=== PATIENT | male | born 1980 | race Two or more races ===

== ENCOUNTER 2021-04-15 05:54 | Emergency (ER) | payer BC ==
[~2021-04-15] VITALS: Ht 165.1 cm; Wt 90.7 kg
[2021-04-15 07:23] VITALS: BP 164/113
[2021-04-15] MEDS ORDERED: CLINDAMYCIN 900MG IV 50 ML IV ONE (07:45)
[2021-04-15] MEDS ORDERED: KETOROLAC TROMETH 30 MG/ML 1ML VIAL IV ONE (07:45)
[2021-04-15] MEDS ORDERED: cloNIDine HCL 0.1 MG TAB PO ONE (08:00)
[2021-04-15] MEDS ORDERED: ONDANSETRON ODT 4 MG TAB PO ONE (08:15)
[2021-04-15] MEDS ORDERED: ACETAMINOPHEN/CODEINE#3 (300/30mg) TAB PO ONE (08:15)
[2021-04-15 08:30] LABS: Basophils # (auto) 0.1 10 ^3/uL (0-0.2); Basophils % (auto) 0.6 % (0.0-2.0); Eosinophils # (auto) 0.1 10 ^3/uL (0-0.8); Eosinophils % (auto) 0.6 % (0.0-7.0); Hematocrit 47.5 % (41.0-53.0); Hemoglobin 16.1 g/dL (13.5-17.5); Lymphocytes # (auto) 1.8 10 ^3/uL (0.4-5.4); Lymphocytes % (auto) 14.6 % (10.0-50.0); Mean Corpuscular Hemoglobin 31.3 pg (28.0-32.0); Mean Corpuscular Hgb Conc. 33.9 g/dL (32.0-36.0); Mean Corpuscular Volume 92.3 fL (80.0-100.0); Monocytes # (auto) 1.1 10 ^3/uL (0-1.3); Monocytes % (auto) 9.1 % (0.0-12.0); Neutrophils % (auto) 75.1 % (37.0-80.0); Nucleated Red Blood Cells % 0.1 %; Red Blood Cells 5.15 10^6/uL (4.5-5.90); Red Cell Distribution Width 13.2 % (11.8-14.3)
== END 2021-04-15 09:35 | disposition home or self-care (01) ==
LOC: ER 05:54
DX: K08.89 Other specified disorders of teeth and supporting structures (principal); R51.9 Headache, unspecified; R03.0 Elevated blood-pressure reading, without diagnosis of hypertension; R07.89 Other chest pain; F12.10 Cannabis abuse, uncomplicated; Z88.0 Allergy status to penicillin; Z88.1 Allergy status to other antibiotic agents
CPT/HCPCS: 36415; 70486; 70490; 85025; 93005; 96365; 99285; J3490; Q0162

== ENCOUNTER 2022-07-04 06:58 | Emergency (ER) | payer BC ==
[~2022-07-04] VITALS: Ht 165.1 cm; Wt 97.0 kg
[2022-07-04 08:19] VITALS: BP 151/105
[2022-07-04] MEDS ORDERED: ALBUTEROL SULF 2.5 MG/0.5ML(0.5%) NEB SOLN NEB ONE ×2 (08:30→08:45)
[2022-07-04] MEDS ORDERED: IPRATROPIUM BROM 0.5 MG/2.5ML INH SOL NEB ONE (08:30)
[2022-07-04] MEDS ORDERED: cefTRIAXone SOD 1,000 MG VL IM ONE (08:30)
[2022-07-04] MEDS ORDERED: AZIT500T66 PO (09:07)
[2022-07-04] MEDS ORDERED: ALBU108A5 IN (09:07)
[2022-07-04] MEDS ORDERED: PRED20TA2 PO (09:07)
== END 2022-07-04 09:14 | disposition home or self-care (01) ==
LOC: ER 06:58
DX: J20.9 Acute bronchitis, unspecified (principal); J03.90 Acute tonsillitis, unspecified; F12.90 Cannabis use, unspecified, uncomplicated; Z90.49 Acquired absence of other specified parts of digestive tract
CPT/HCPCS: 71046; 94640; 96372; 99283; J0696; J7644

== ENCOUNTER 2022-08-13 15:56 | Emergency (ER) | payer BC ==
[~2022-08-13] VITALS: Ht 165.1 cm; Wt 98.8 kg
[~2022-08-13 15:56] MED LIST: ALBU108A5 IN; AZIT500T66 PO; PRED20TA2 PO
[2022-08-13] MEDS ORDERED: MAALOX PLUS or MAALOX 30 ML PO ONE (17:30)
[2022-08-13] MEDS ORDERED: ONDANSETRON ODT 4 MG TAB PO ONE (17:30)
[2022-08-13] MEDS ORDERED: FAMOTIDINE 20 MG TAB PO ONE (17:30)
[2022-08-13] MEDS ORDERED: LIDOCAINE VISCOUS 2% 15ML UD PO ONE (17:30)
[2022-08-13 17:36] LABS: Urine Bacteria NONE SEEN /hpf (None Seen); Urine Blood 1+ /uL (Negative); Urine Hyaline Cast FEW /lpf (0 - 2); Urine Mucus FEW (None Seen); Urine Specific Gravity 1.019 (1.001-1.035); Urine WBC 3 /hpf (0 - 3)
[2022-08-13 18:27] LABS: Albumin 3.8 g/dL (3.4-5.0); Calcium 8.7 mg/dL (8.5-10.1); Potassium 3.6 mmol/L (3.5-5.1)
[2022-08-13 18:30] LABS: BUN/Creatinine Ratio 7.4
[2022-08-13 18:33] LABS: Bilirubin, Total 1.2 mg/dL (0.2-1.0); Total Protein 7.6 g/dL (6.4-8.2)
[2022-08-13 18:53] LABS: Basophils # (auto) 0.1 10 ^3/uL (0-0.2); Eosinophils # (auto) 0.1 10 ^3/uL (0-0.8); Eosinophils % (auto) 1.4 % (0.0-7.0); Mean Corpuscular Hgb Conc. 35.4 g/dL (32.0-36.0)
[2022-08-13 19:01] LABS: Basophils % (auto) 0.6 % (0.0-2.0); Hematocrit 47.9 % (41.0-53.0); Lymphocytes # (auto) 1.5 10 ^3/uL (0.4-5.4); Mean Corpuscular Hemoglobin 32.4 pg (28.0-32.0); Mean Corpuscular Volume 91.4 fL (80.0-100.0); Monocytes # (auto) 0.8 10 ^3/uL (0-1.3); Monocytes % (auto) 9.4 % (0.0-12.0); Neutrophils # (auto) 6.4 10 ^3/uL (1.6-8.6); Neutrophils % (auto) 71.6 % (37.0-80.0); Nucleated Red Blood Cells % 0.1 %; Red Blood Cells 5.24 10^6/uL (4.5-5.90); Red Cell Distribution Width 13.3 % (11.8-14.3)
[2022-08-13] MEDS ORDERED: ONDA-144 PO (20:23)
[2022-08-13 21:41] VITALS: BP 145/101
== END 2022-08-13 21:41 | disposition home or self-care (01) ==
LOC: ER 15:56
DX: R19.7 Diarrhea, unspecified (principal); R11.2 Nausea with vomiting, unspecified; Z88.0 Allergy status to penicillin; Z79.899 Other long term (current) drug therapy; Z90.49 Acquired absence of other specified parts of digestive tract; F12.90 Cannabis use, unspecified, uncomplicated
CPT/HCPCS: 36415; 80053; 81001; 85025; 99284; Q0162

== ENCOUNTER 2023-02-06 08:47 | Inpatient (IN) | payer BC ==
[~2023-02-06] VITALS: Ht 165.1 cm; Wt 94.4 kg
[~2023-02-06 08:47] MED LIST changes: +ONDA-144 PO
[2023-02-06] MEDS ORDERED: SODIUM CHLORIDE 0.9% 1,000 ML IV ONE (09:00)
[2023-02-06 09:16] LABS: Basophils # (auto) 0.2 10 ^3/uL (0-0.2); Basophils % (auto) 1.5 % (0.0-2.0); Eosinophils # (auto) 0.1 10 ^3/uL (0-0.8); Eosinophils % (auto) 0.7 % (0.0-7.0); Hematocrit 50.2 % (41.0-53.0); Hemoglobin 17.3 g/dL (13.5-17.5); Lymphocytes # (auto) 1.4 10 ^3/uL (0.4-5.4); Lymphocytes % (auto) 14.8 % (10.0-50.0); Mean Corpuscular Hemoglobin 31.4 pg (28.0-32.0); Mean Corpuscular Hgb Conc. 34.4 g/dL (32.0-36.0); Mean Corpuscular Volume 91.3 fL (80.0-100.0); Monocytes # (auto) 0.6 10 ^3/uL (0-1.3); Monocytes % (auto) 5.7 % (0.0-12.0); Neutrophils # (auto) 7.5 10 ^3/uL (1.6-8.6); Neutrophils % (auto) 77.3 % (37.0-80.0); Nucleated Red Blood Cells % 0.2 %; Red Cell Distribution Width 13.3 % (11.8-14.3); White Blood Cell 9.7 10^3/uL (4.4-10.8)
[2023-02-06 09:21] VITALS: PULSE 107; RESP 16; O2SAT 100
[2023-02-06 09:34] LABS: Potassium 4.4 mmol/L (3.5-5.1)
[2023-02-06 09:41] LABS: Albumin 4.1 g/dL (3.4-5.0); BUN/Creatinine Ratio 7.1 (10.0-20.0); Bilirubin, Total 1.1 mg/dL (0.2-1.0); Calcium 9.1 mg/dL (8.5-10.1); Total Protein 7.7 g/dL (6.4-8.2)
[2023-02-06 09:52] LABS: INR 1.02 (0.9-1.15); Partial Thromboplastin Time 27.2 SEC (24.5-34.5); Prothrombin Time 10.7 sec (9.3-11.8)
[2023-02-06 11:20] LABS: Urine Bacteria NONE SEEN /hpf (None Seen); Urine Blood Negative /uL (Negative); Urine Clarity Clear (Clear); Urine Color Yellow (Yellow); Urine Protein, UAD TRACE (Negative); Urine Specific Gravity 1.012 (1.001-1.035); Urine Urobilinogen Normal (Negative); Urine WBC <1 /hpf (0 - 3); Urine pH 8.5 (5.0-8.0)
[2023-02-06] MEDS ORDERED: LORazepam 2MG/ML-1ML VIAL IV PRN (11:45)
[2023-02-06] MEDS ORDERED: MORPHINE SULFATE INJ 2 MG/ml SYRG IV PRN ×2 (11:45)
[2023-02-06] MEDS ORDERED: NITROGLYCERIN 0.4 MG SL TAB SL PRN (11:45)
[2023-02-06] MEDS ORDERED: HYDROcodone-ACET 5/325MG TAB PO PRN (11:45)
[2023-02-06] MEDS ORDERED: LORazepam 2MG/ML-1ML VIAL IV ONE (11:45)
[2023-02-06] MEDS ORDERED: ONDANSETRON HCL 4 MG/2 ML VIAL IV PRN (11:45)
[2023-02-06] MEDS: SODIUM CHLORIDE 0.9% 1,000 ML IV SCH ×2 (12:30→22:19)
[2023-02-06] MEDS: FOLIC ACID 1 MG, MULTIPLE VITAMIN 10 ML, MAGNESIUM SULF SDV 50% 8 MEQ, THIAMINE INJ 100... INJ SCH ×5 (13:52)
[2023-02-06 14:40] VITALS: PULSE 80; RESP 16; O2SAT 92
[2023-02-06] MEDS: ACETAMINOPHEN 500 MG TAB PO PRN (20:18)
[2023-02-06 22:02] VITALS: BP 129/84; PULSE 84; RESP 18; TEMP 98.6; O2SAT 94
[2023-02-06] MEDS: PANTOPRAZOLE 40 MG/10 ML VIAL INJ IV SCH (22:19)
[2023-02-07] VITALS (8 sets, daily range): BP systolic 133–168; BP diastolic 88–98; PULSE 69–104; RESP 14–22; TEMP 97.7–98.4; O2SAT 95–97
[2023-02-07 05:47] LABS: Basophils # (auto) 0.1 10 ^3/uL (0-0.2); Basophils % (auto) 0.9 % (0.0-2.0); Eosinophils # (auto) 0.2 10 ^3/uL (0-0.8); Eosinophils % (auto) 2.9 % (0.0-7.0); Hematocrit 45.3 % (41.0-53.0); Hemoglobin 15.4 g/dL (13.5-17.5); Lymphocytes # (auto) 1.7 10 ^3/uL (0.4-5.4); Lymphocytes % (auto) 22.3 % (10.0-50.0); Mean Corpuscular Hemoglobin 31.5 pg (28.0-32.0); Mean Corpuscular Hgb Conc. 33.9 g/dL (32.0-36.0); Mean Corpuscular Volume 92.9 fL (80.0-100.0); Monocytes # (auto) 0.5 10 ^3/uL (0-1.3); Monocytes % (auto) 6.7 % (0.0-12.0); Neutrophils # (auto) 5.2 10 ^3/uL (1.6-8.6); Neutrophils % (auto) 67.2 % (37.0-80.0); Nucleated Red Blood Cells % 0.1 %; Red Blood Cells 4.88 10^6/uL (4.5-5.90); Red Cell Distribution Width 13.5 % (11.8-14.3); White Blood Cell 7.7 10^3/uL (4.4-10.8)
[2023-02-07 06:09] LABS: Albumin 3.2 g/dL (3.4-5.0); Calcium 8.2 mg/dL (8.5-10.1); Potassium 4.9 mmol/L (3.5-5.1)
[2023-02-07 06:13] LABS: BUN/Creatinine Ratio 5.8 (10.0-20.0); Bilirubin, Total 1.7 mg/dL (0.2-1.0); Total Protein 6.8 g/dL (6.4-8.2)
[2023-02-07] MEDS: SODIUM CHLORIDE 0.9% 1,000 ML IV SCH ×2 (07:45→17:58)
[2023-02-07] MEDS ORDERED: hydrALAZINE HCL 20 MG/ML VL IV PRN (09:15)
[2023-02-07] MEDS: PANTOPRAZOLE 40 MG/10 ML VIAL INJ IV SCH ×2 (10:32→21:47)
[2023-02-07] MEDS: chlordiazePOXIDE HCL 5 MG CAP PO SCH ×3 (12:00→21:48)
[2023-02-07] MEDS ORDERED: PROPOFOL 10 MG/ML 20 ML IV ONE ×2 (13:28→13:39)
[2023-02-07] MEDS ORDERED: LIDOCAINE 2% (LOCAL ANESTH.) PF 5ml SDV ONE (13:28)
[2023-02-07] MEDS ORDERED: chlordiazePOXIDE HCL 25 MG CAP PO PRN (14:00)
[2023-02-07] MEDS: FOLIC ACID 1 MG, MULTIPLE VITAMIN 10 ML, MAGNESIUM SULF SDV 50% 8 MEQ, THIAMINE INJ 100... INJ SCH ×5 (16:30)
[2023-02-07] MEDS: NYSTATIN (MOUTH-THROAT) 500,000 UNITS/5 ML SUSP MT SCH ×2 (17:58→21:48)
[2023-02-07] MEDS: SUCRALFATE 1 GM/10 ML ORAL SUSP PO SCH ×2 (17:58→21:48)
[2023-02-07] MEDS: ACETAMINOPHEN 500 MG TAB PO PRN (22:08)
[2023-02-08 05:00] VITALS: BP 141/95; PULSE 81; RESP 19; TEMP 98.5; O2SAT 97
[2023-02-08 05:56] LABS: Basophils # (auto) 0.1 10 ^3/uL (0-0.2); Basophils % (auto) 0.8 % (0.0-2.0); Eosinophils # (auto) 0.2 10 ^3/uL (0-0.8); Eosinophils % (auto) 2.7 % (0.0-7.0); Hematocrit 45.7 % (41.0-53.0); Hemoglobin 15.6 g/dL (13.5-17.5); Lymphocytes # (auto) 1.8 10 ^3/uL (0.4-5.4); Lymphocytes % (auto) 22.9 % (10.0-50.0); Mean Corpuscular Hemoglobin 31.8 pg (28.0-32.0); Mean Corpuscular Volume 93.4 fL (80.0-100.0); Monocytes # (auto) 0.7 10 ^3/uL (0-1.3); Monocytes % (auto) 8.1 % (0.0-12.0); Neutrophils # (auto) 5.3 10 ^3/uL (1.6-8.6); Neutrophils % (auto) 65.5 % (37.0-80.0); Red Blood Cells 4.89 10^6/uL (4.5-5.90); Red Cell Distribution Width 13.3 % (11.8-14.3); White Blood Cell 8.1 10^3/uL (4.4-10.8)
[2023-02-08] MEDS: NYSTATIN (MOUTH-THROAT) 500,000 UNITS/5 ML SUSP MT SCH (06:08)
[2023-02-08] MEDS: SODIUM CHLORIDE 0.9% 1,000 ML IV SCH (06:08)
[2023-02-08] MEDS: chlordiazePOXIDE HCL 5 MG CAP PO SCH (06:09)
[2023-02-08] MEDS: SUCRALFATE 1 GM/10 ML ORAL SUSP PO SCH (06:09)
[2023-02-08 06:37] LABS: Albumin 3.4 g/dL (3.4-5.0); Calcium 8.5 mg/dL (8.5-10.1); Potassium 4.7 mmol/L (3.5-5.1)
[2023-02-08 06:39] LABS: BUN/Creatinine Ratio 10.5 (10.0-20.0)
[2023-02-08 06:42] LABS: Bilirubin, Total 1.4 mg/dL (0.2-1.0); Total Protein 6.5 g/dL (6.4-8.2)
[2023-02-08 08:00] VITALS: BP 135/96; PULSE 71; RESP 12; TEMP 98; O2SAT 96
[2023-02-08 09:00] VITALS: BP 135/96; PULSE 70; RESP 12; TEMP 98; O2SAT 96
[2023-02-08 09:24] VITALS: BP 135/96; PULSE 70; RESP 12; TEMP 98; O2SAT 96
== END 2023-02-08 10:40 | disposition home or self-care (01) | DRG 381 ==
LOC: ER 08:47 → TELE 11:37 → TELE-EAST 21:59
PROVIDERS: ADMIT Internal Medicine; ATTEND Internal Medicine
PROC: 0DB68ZX Excision of Stomach, Via Natural or Artificial Opening Endoscopic, Diagnostic (ICD-10-PCS; 2023-02-07)
PROC: 0DB48ZX Excision of Esophagogastric Junction, Via Natural or Artificial Opening Endoscopic, Diagnostic (ICD-10-PCS; 2023-02-07)
PROC: 0DB98ZX Excision of Duodenum, Via Natural or Artificial Opening Endoscopic, Diagnostic (ICD-10-PCS; principal; 2023-02-07 13:29)
DX: K22.11 Ulcer of esophagus with bleeding (principal); F10.239 Alcohol dependence with withdrawal, unspecified; K25.4 Chronic or unspecified gastric ulcer with hemorrhage; K29.71 Gastritis, unspecified, with bleeding; I10 Essential (primary) hypertension; F41.9 Anxiety disorder, unspecified; K44.9 Diaphragmatic hernia without obstruction or gangrene; K31.9 Disease of stomach and duodenum, unspecified; K70.9 Alcoholic liver disease, unspecified; Z88.0 Allergy status to penicillin; Z88.1 Allergy status to other antibiotic agents; Z90.49 Acquired absence of other specified parts of digestive tract
CPT/HCPCS: 36415; 71045; 74176; 80053; 81001; 83036; 84484; 85025; 85610; 85730; 86850; 86900; 86901; 93005; C9113; G0378; J2001; J2704

== ENCOUNTER 2023-04-08 09:40 | Inpatient (IN) | payer BC, MEDICAID ==
[~2023-04-08] VITALS: Ht 165.1 cm; Wt 95.5 kg
[2023-04-08 10:00] VITALS: PULSE 87; RESP 17; O2SAT 94
[2023-04-08 10:00] LABS: Basophils # (auto) 0.1 10 ^3/uL (0-0.2); Basophils % (auto) 1.2 % (0.0-2.0); Eosinophils # (auto) 0.1 10 ^3/uL (0-0.8); Eosinophils % (auto) 0.9 % (0.0-7.0); Hematocrit 46.5 % (41.0-53.0); Hemoglobin 15.9 g/dL (13.5-17.5); Lymphocytes # (auto) 2.2 10 ^3/uL (0.4-5.4); Lymphocytes % (auto) 24.1 % (10.0-50.0); Mean Corpuscular Hemoglobin 31.6 pg (28.0-32.0); Mean Corpuscular Hgb Conc. 34.2 g/dL (32.0-36.0); Mean Corpuscular Volume 92.5 fL (80.0-100.0); Monocytes # (auto) 0.8 10 ^3/uL (0-1.3); Monocytes % (auto) 8.8 % (0.0-12.0); Neutrophils # (auto) 5.8 10 ^3/uL (1.6-8.6); Nucleated Red Blood Cells % 0.1 %; Red Blood Cells 5.03 10^6/uL (4.5-5.90); Red Cell Distribution Width 13.2 % (11.8-14.3)
[2023-04-08] MEDS ORDERED: THIAMINE 100mg/ml INJ (200mg/2ml VIAL) IV ONE (10:00)
[2023-04-08 10:29] LABS: Alanine Aminotransferase 78 U/L (7-40); Albumin 4.6 g/dL (3.2-4.8); Alkaline Phosphatase 82 U/L (46-116); Anion Gap 9 (5-15); Aspartate Aminotransferase 54 U/L (13-40); Carbon Dioxide 26 mmol/L (20-30); Chloride 102 mmol/L (98-107); Glucose 133 mg/dL (74-106); Potassium 4.2 mmol/L (3.5-5.1); Sodium 137 mmol/L (136-145)
[2023-04-08 10:30] LABS: Bilirubin, Total 0.8 mg/dL (0.2-1.0); Total Protein 7.5 g/dL (5.7-8.2)
[2023-04-08 10:32] LABS: BUN/Creatinine Ratio 6.5 (10.0-20.0); Blood Urea Nitrogen < 5 mg/dL (9-23)
[2023-04-08] MEDS ORDERED: MORPHINE SULFATE INJ 2 MG/ml SYRG IV PRN (11:15)
[2023-04-08] MEDS ORDERED: NITROGLYCERIN 0.4 MG SL TAB SL PRN (11:15)
[2023-04-08 11:22] LABS: INR 1.01 (0.9-1.15); Partial Thromboplastin Time 27.7 SEC (24.5-34.5); Prothrombin Time 10.6 sec (9.3-11.8)
[2023-04-08] MEDS: SUCRALFATE 1 GM/10 ML ORAL SUSP GT SCH ×2 (11:55→16:44)
[2023-04-08] MEDS: LORazepam 2MG/ML-1ML VIAL IV PRN (12:04)
[2023-04-08] MEDS: FOLIC ACID 1 MG, MULTIPLE VITAMIN 10 ML, MAGNESIUM SULF SDV 50% 8 MEQ, THIAMINE INJ 100... INJ SCH ×5 (12:45)
[2023-04-08] MEDS: ONDANSETRON HCL 4 MG/2 ML VIAL IV PRN ×2 (16:14→20:25)
[2023-04-08 19:30] VITALS: PULSE 85; RESP 18; O2SAT 95
[2023-04-08] MEDS ORDERED: hydrALAZINE HCL 20 MG/ML VL IV PRN (20:00)
[2023-04-08 21:28] LABS: Urine Bacteria NONE SEEN /hpf (None Seen); Urine Blood Negative /uL (Negative); Urine Clarity Clear (Clear); Urine Color Yellow (Yellow); Urine Protein, UAD TRACE (Negative); Urine Specific Gravity 1.039 (1.001-1.035); Urine Urobilinogen Normal (Negative); Urine WBC <1 /hpf (0 - 3)
[2023-04-08 22:16] LABS: INR 1.04 (0.9-1.15); Partial Thromboplastin Time 28.2 SEC (24.5-34.5); Prothrombin Time 10.9 sec (9.3-11.8)
[2023-04-08] MEDS: PANTOPRAZOLE 40 MG/10 ML VIAL INJ IV SCH (22:41)
[2023-04-09] MEDS: SUCRALFATE 1 GM/10 ML ORAL SUSP GT SCH ×3 (07:00→16:23)
[2023-04-09] MEDS: PANTOPRAZOLE 40 MG/10 ML VIAL INJ IV SCH ×2 (10:00→22:20)
[2023-04-09] MEDS ORDERED: LISINOPRIL 10 MG TAB PO SCH (10:00)
[2023-04-09 11:04] LABS: Basophils # (auto) 0.1 10 ^3/uL (0-0.2); Basophils % (auto) 1.2 % (0.0-2.0); Eosinophils # (auto) 0.1 10 ^3/uL (0-0.8); Eosinophils % (auto) 1.7 % (0.0-7.0); Hematocrit 47.7 % (41.0-53.0); Hemoglobin 16.3 g/dL (13.5-17.5); Lymphocytes # (auto) 1.7 10 ^3/uL (0.4-5.4); Lymphocytes % (auto) 20.9 % (10.0-50.0); Mean Corpuscular Hemoglobin 31.8 pg (28.0-32.0); Mean Corpuscular Hgb Conc. 34.1 g/dL (32.0-36.0); Mean Corpuscular Volume 93.1 fL (80.0-100.0); Monocytes # (auto) 0.8 10 ^3/uL (0-1.3); Neutrophils # (auto) 5.5 10 ^3/uL (1.6-8.6); Neutrophils % (auto) 66.2 % (37.0-80.0); Nucleated Red Blood Cells % 0.1 %; Red Blood Cells 5.12 10^6/uL (4.5-5.90); Red Cell Distribution Width 13.4 % (11.8-14.3); White Blood Cell 8.4 10^3/uL (4.4-10.8)
[2023-04-09 11:20] LABS: Alanine Aminotransferase 68 U/L (7-40); Albumin 4.4 g/dL (3.2-4.8); Alkaline Phosphatase 75 U/L (46-116); Anion Gap 7 (5-15); Aspartate Aminotransferase 46 U/L (13-40); Bilirubin, Total 2.4 mg/dL (0.2-1.0); Calcium 8.7 mg/dL (8.5-10.1); Carbon Dioxide 27 mmol/L (20-30); Chloride 101 mmol/L (98-107); Cholesterol 191 mg/dL (< 200); Glucose 105 mg/dL (74-106); HDL Cholesterol 73 mg/dL (40-59); LDL Cholesterol 106 mg/dL (< 100); Potassium 3.7 mmol/L (3.5-5.1); Sodium 135 mmol/L (136-145); Total Protein 7.1 g/dL (5.7-8.2); Triglycerides 64 mg/dL (< 150)
[2023-04-09] MEDS: FOLIC ACID 1 MG, MULTIPLE VITAMIN 10 ML, MAGNESIUM SULF SDV 50% 8 MEQ, THIAMINE INJ 100... INJ SCH ×5 (12:00)
[2023-04-09 12:27] LABS: BUN/Creatinine Ratio 6.7 (10.0-20.0); Blood Urea Nitrogen < 5 mg/dL (9-23)
[2023-04-09] MEDS ORDERED: SUCR1TAB PO (13:19)
[2023-04-09] MEDS ORDERED: LISI40TA16 PO (13:19)
[2023-04-09] MEDS ORDERED: PANT40T PO (13:19)
[2023-04-09] MEDS: ACETAMINOPHEN 325 MG TAB PO PRN ×2 (13:57→22:21)
[2023-04-09 16:25] VITALS: BP 131/92; PULSE 73; RESP 21; TEMP 97.7; O2SAT 96
[2023-04-09 17:28] LABS: Lipase 47 U/L (12-53)
[2023-04-09 17:29] LABS: Magnesium 2.6 mg/dL (1.6-2.6)
[2023-04-09 20:00] VITALS: PULSE 76; PULSE 85; RESP 18; O2SAT 95
[2023-04-09] MEDS ORDERED: ERGOCALCIFEROL 50,000 UNIT(1.25MG) CAP PO SCH (21:00)
[2023-04-09 22:00] VITALS: BP 147/92; PULSE 85; RESP 18; TEMP 98.6; O2SAT 95
[2023-04-10] VITALS (7 sets, daily range): BP systolic 135–157; BP diastolic 80–96; PULSE 64–94; RESP 18–21; TEMP 98.1–99; O2SAT 94–98
[2023-04-10] MEDS: SUCRALFATE 1 GM/10 ML ORAL SUSP GT SCH ×3 (06:26→17:00)
[2023-04-10 06:52] LABS: Alanine Aminotransferase 70 U/L (7-40); Albumin 4.3 g/dL (3.2-4.8); Alkaline Phosphatase 76 U/L (46-116); Anion Gap 6 (5-15); Aspartate Aminotransferase 61 U/L (13-40); Calcium 8.8 mg/dL (8.7-10.4); Carbon Dioxide 29 mmol/L (20-30); Chloride 100 mmol/L (98-107); Lipase 49 U/L (12-53); Sodium 135 mmol/L (136-145)
[2023-04-10 06:53] LABS: Bilirubin, Total 2.1 mg/dL (0.2-1.0)
[2023-04-10 07:08] LABS: Glucose 104 mg/dL (74-106)
[2023-04-10 07:12] LABS: Basophils # (auto) 0.1 10 ^3/uL (0-0.2); Basophils % (auto) 0.9 % (0.0-2.0); Eosinophils # (auto) 0.2 10 ^3/uL (0-0.8); Eosinophils % (auto) 2.8 % (0.0-7.0); Hematocrit 45.2 % (41.0-53.0); Hemoglobin 15.7 g/dL (13.5-17.5); Lymphocytes # (auto) 1.9 10 ^3/uL (0.4-5.4); Lymphocytes % (auto) 21.6 % (10.0-50.0); Mean Corpuscular Hemoglobin 32.1 pg (28.0-32.0); Mean Corpuscular Hgb Conc. 34.7 g/dL (32.0-36.0); Mean Corpuscular Volume 92.6 fL (80.0-100.0); Monocytes # (auto) 0.8 10 ^3/uL (0-1.3); Monocytes % (auto) 9.3 % (0.0-12.0); Neutrophils # (auto) 5.6 10 ^3/uL (1.6-8.6); Neutrophils % (auto) 65.4 % (37.0-80.0); Nucleated Red Blood Cells % 0.2 %; Red Blood Cells 4.88 10^6/uL (4.5-5.90); Red Cell Distribution Width 13.4 % (11.8-14.3); White Blood Cell 8.6 10^3/uL (4.4-10.8)
[2023-04-10 07:13] LABS: BUN/Creatinine Ratio 6.1 (10.0-20.0); Blood Urea Nitrogen < 5 mg/dL (9-23)
[2023-04-10] MEDS: PANTOPRAZOLE 40 MG/10 ML VIAL INJ IV SCH ×2 (09:54→22:25)
[2023-04-10] MEDS ORDERED: LISINOPRIL 10 MG TAB PO SCH (10:00)
[2023-04-10] MEDS: ACETAMINOPHEN 325 MG TAB PO PRN ×2 (10:07→20:00)
[2023-04-10] MEDS ORDERED: PANT40TA2 PO (10:22)
[2023-04-10] MEDS ORDERED: SUCR1TAB22 OR (10:22)
[2023-04-10] MEDS: FOLIC ACID 1 MG, MULTIPLE VITAMIN 10 ML, MAGNESIUM SULF SDV 50% 8 MEQ, THIAMINE INJ 100... INJ SCH ×5 (12:00)
[2023-04-10] MEDS ORDERED: LIDOCAINE VISCOUS 2% 15ML UD ONE (12:53)
[2023-04-10] MEDS ORDERED: MIDAZOLAM HCL 5 MG/ML-1ML VIAL ONE (12:53)
[2023-04-10] MEDS ORDERED: SODIUM CHLORIDE LOCK 0 ML ONE (12:53)
[2023-04-10] MEDS ORDERED: fentaNYL CITRATE 100 MCG/2 ML VL ONE (12:54)
[2023-04-10] MEDS ORDERED: diphenhdrAMINE HCL 50 MG/1 ML VL ONE (12:54)
[2023-04-10] MEDS: LORazepam 2MG/ML-1ML VIAL IV PRN (22:37)
[2023-04-11 00:57] VITALS: PULSE 77
[2023-04-11 05:00] VITALS: BP 136/89; PULSE 86; RESP 20; TEMP 98.2; O2SAT 96
[2023-04-11 05:41] LABS: Basophils # (auto) 0.1 10 ^3/uL (0-0.2); Eosinophils # (auto) 0.3 10 ^3/uL (0-0.8); Eosinophils % (auto) 3.2 % (0.0-7.0); Hematocrit 45.7 % (41.0-53.0); Hemoglobin 15.7 g/dL (13.5-17.5); Lymphocytes # (auto) 2.1 10 ^3/uL (0.4-5.4); Lymphocytes % (auto) 23.1 % (10.0-50.0); Mean Corpuscular Hemoglobin 32.1 pg (28.0-32.0); Mean Corpuscular Hgb Conc. 34.3 g/dL (32.0-36.0); Mean Corpuscular Volume 93.4 fL (80.0-100.0); Monocytes % (auto) 10.5 % (0.0-12.0); Neutrophils # (auto) 5.6 10 ^3/uL (1.6-8.6); Neutrophils % (auto) 62.2 % (37.0-80.0); Red Blood Cells 4.89 10^6/uL (4.5-5.90); Red Cell Distribution Width 13.2 % (11.8-14.3); White Blood Cell 9.1 10^3/uL (4.4-10.8)
[2023-04-11 05:59] LABS: Alanine Aminotransferase 76 U/L (7-40); Albumin 4.3 g/dL (3.2-4.8); Alkaline Phosphatase 76 U/L (46-116); Anion Gap 6 (5-15); Aspartate Aminotransferase 62 U/L (13-40); Calcium 9.1 mg/dL (8.7-10.4); Carbon Dioxide 28 mmol/L (20-30); Chloride 101 mmol/L (98-107); Glucose 113 mg/dL (74-106); Lipase 50 U/L (12-53); Potassium 4.5 mmol/L (3.5-5.1); Sodium 135 mmol/L (136-145)
[2023-04-11 06:29] LABS: Bilirubin, Total 1.6 mg/dL (0.2-1.0); Blood Urea Nitrogen 5 mg/dL (9-23)
[2023-04-11 06:30] LABS: Total Protein 6.9 g/dL (5.7-8.2)
[2023-04-11] MEDS: SUCRALFATE 1 GM/10 ML ORAL SUSP GT SCH (06:30)
[2023-04-11 08:00] VITALS: PULSE 80; RESP 18; O2SAT 95
[2023-04-11 08:13] VITALS: BP 157/96; TEMP 36.8
[2023-04-11] MEDS: PANTOPRAZOLE 40 MG/10 ML VIAL INJ IV SCH (10:00)
[2023-04-11] MEDS ORDERED: LISINOPRIL 10 MG TAB PO SCH (10:00)
== END 2023-04-11 10:00 | disposition home or self-care (01) | DRG 313 ==
LOC: ER 09:40 → TELE 11:15 → TELE-WESTW 04-09 13:05
PROVIDERS: ADMIT Internal Medicine Geriatric Medicine; ATTEND Emergency Medicine
DX: R07.89 Other chest pain (principal); K92.2 Gastrointestinal hemorrhage, unspecified; K44.9 Diaphragmatic hernia without obstruction or gangrene; K76.0 Fatty (change of) liver, not elsewhere classified; F10.10 Alcohol abuse, uncomplicated; I10 Essential (primary) hypertension; F41.9 Anxiety disorder, unspecified; R74.01 Elevation of levels of liver transaminase levels; F12.90 Cannabis use, unspecified, uncomplicated; E55.9 Vitamin D deficiency, unspecified; Z83.3 Family history of diabetes mellitus; Z88.0 Allergy status to penicillin; Z79.899 Other long term (current) drug therapy; Z82.49 Family history of ischemic heart disease and other diseases of the circulatory system; Z87.19 Personal history of other diseases of the digestive system; Z91.148 Patient's other noncompliance with medication regimen for other reason
CPT/HCPCS: 36415; 71045; 71275; 76705; 80053; 80061; 80320; 81001; 82306; 82607; 83036; 83690; 83735; 84443; 84484; 85025; 85379; 85610; 85730; 93005; 93306; 96374; 99291; C9113; G0378; J2250; J2405

== ENCOUNTER 2023-07-23 06:50 | Emergency (ER) | payer BC, MEDICAID ==
[~2023-07-23] VITALS: Ht 165.1 cm; Wt 95.9 kg
[~2023-07-23 06:50] MED LIST changes: -ALBU108A5 IN; -AZIT500T66 PO; +LISI40TA16 PO; -ONDA-144 PO; +PANT40TA2 PO; -PRED20TA2 PO; +SUCR1TAB22 OR
[2023-07-23] MEDS ORDERED: ONDANSETRON ODT 4 MG TAB PO ONE (07:00)
[2023-07-23] MEDS ORDERED: cloNIDine HCL 0.1 MG TAB PO ONE (07:00)
[2023-07-23] MEDS ORDERED: LISI40TA16 PO (07:14)
[2023-07-23] MEDS ORDERED: ZOFR4T PO (07:14)
[2023-07-23 07:17] VITALS: BP 114/107; PULSE 120; RESP 18; O2SAT 98
[2023-07-23 07:25] LABS: Basophils # (auto) 0.1 10 ^3/uL (0-0.2); Eosinophils # (auto) 0.1 10 ^3/uL (0-0.8); Eosinophils % (auto) 1.3 % (0.0-7.0); Hematocrit 51.2 % (41.0-53.0); Hemoglobin 17.3 g/dL (13.5-17.5); Lymphocytes # (auto) 3.1 10 ^3/uL (0.4-5.4); Lymphocytes % (auto) 28.3 % (10.0-50.0); Mean Corpuscular Hemoglobin 31.6 pg (28.0-32.0); Mean Corpuscular Hgb Conc. 33.9 g/dL (32.0-36.0); Mean Corpuscular Volume 93.2 fL (80.0-100.0); Monocytes # (auto) 0.8 10 ^3/uL (0-1.3); Monocytes % (auto) 7.1 % (0.0-12.0); Neutrophils # (auto) 6.7 10 ^3/uL (1.6-8.6); Neutrophils % (auto) 62.3 % (37.0-80.0); Nucleated Red Blood Cells % 0.1 %; Red Blood Cells 5.49 10^6/uL (4.5-5.90); Red Cell Distribution Width 13.1 % (11.8-14.3); White Blood Cell 10.8 10^3/uL (4.4-10.8)
[2023-07-23 07:36] LABS: Chloride 100 mmol/L (98-107); Potassium 3.7 mmol/L (3.5-5.1); Sodium 135 mmol/L (136-145)
[2023-07-23 07:37] LABS: Anion Gap 7 (5-15); Calcium 9.6 mg/dL (8.5-10.1); Carbon Dioxide 28 mmol/L (20-30)
[2023-07-23 07:42] LABS: Glucose 126 mg/dL (74-106)
[2023-07-23 08:18] LABS: BUN/Creatinine Ratio 5.7 (10.0-20.0); Blood Urea Nitrogen < 5 mg/dL (9-23)
== END 2023-07-23 08:51 | disposition home or self-care (01) ==
LOC: ER 06:50
DX: I16.0 Hypertensive urgency (principal); K29.00 Acute gastritis without bleeding; F15.90 Other stimulant use, unspecified, uncomplicated; Z98.890 Other specified postprocedural states; Z88.8 Allergy status to other drugs, medicaments and biological substances; Z79.899 Other long term (current) drug therapy
CPT/HCPCS: 36415; 76705; 80048; 85025; 99284; Q0162

== ENCOUNTER 2024-04-25 14:41 | Emergency (ER) | payer BC, MEDICAID ==
[~2024-04-25] VITALS: Ht 165.1 cm; Wt 105.0 kg
[~2024-04-25 14:41] MED LIST changes: -SUCR1TAB22 OR; +SUCR1TAB31 OR; +ZOFR4T PO
[2024-04-25 16:35] LABS: Basophils # (auto) 0.1 10 ^3/uL (0-0.2); Basophils % (auto) 0.8 % (0.0-2.0); Eosinophils # (auto) 0.1 10 ^3/uL (0-0.8); Eosinophils % (auto) 0.8 % (0.0-7.0); Hematocrit 49.4 % (41.0-53.0); Hemoglobin 16.9 g/dL (13.5-17.5); Lymphocytes # (auto) 1.6 10 ^3/uL (0.4-5.4); Lymphocytes % (auto) 16.5 % (10.0-50.0); Mean Corpuscular Hemoglobin 32.1 pg (28.0-32.0); Mean Corpuscular Hgb Conc. 34.2 g/dL (32.0-36.0); Mean Corpuscular Volume 93.9 fL (80.0-100.0); Monocytes # (auto) 0.5 10 ^3/uL (0-1.3); Monocytes % (auto) 5.6 % (0.0-12.0); Neutrophils # (auto) 7.2 10 ^3/uL (1.6-8.6); Neutrophils % (auto) 76.3 % (37.0-80.0); Nucleated Red Blood Cells % 0.1 %; Platelet Count (auto) 263 10^3/uL (140-450); Red Blood Cells 5.27 10^6/uL (4.5-5.90); Red Cell Distribution Width 13.3 % (11.8-14.3); White Blood Cell 9.4 10^3/uL (4.4-10.8)
[2024-04-25 16:45] LABS: Chloride 97 mmol/L (98-107); Potassium 3.5 mmol/L (3.5-5.1); Sodium 132 mmol/L (136-145)
[2024-04-25 16:46] LABS: Anion Gap 9 (5-15); Carbon Dioxide 26 mmol/L (20-31)
[2024-04-25 16:47] LABS: Calcium 9.5 mg/dL (8.7-10.4)
[2024-04-25 16:52] VITALS: PULSE 107; RESP 18; O2SAT 100
[2024-04-25 16:52] LABS: Glucose 111 mg/dL (74-106); Magnesium 2.3 mg/dL (1.6-2.6)
[2024-04-25 16:53] LABS: BUN/Creatinine Ratio 6.5 (10.0-20.0); Blood Urea Nitrogen < 5 mg/dL (9-23)
[2024-04-25 16:54] LABS: Creatine Kinase IFCC 82 U/L (46-171)
[2024-04-25] MEDS: KETOROLAC TROMETH 60MG/2ML VIAL IM ONE (16:59)
[2024-04-25 17:13] LABS: Urine Bacteria None Seen /hpf (None Seen)
[2024-04-25 17:27] LABS: Urine Blood 1+ /uL (Negative); Urine Clarity Clear (Clear); Urine Color Light-Orange (Yellow); Urine Protein, UAD TRACE (Negative); Urine Specific Gravity 1.013 (1.001-1.035); Urine Urobilinogen 12 mg/dL (Negative); Urine WBC 3 /hpf (0 - 3)
[2024-04-25 18:08] LABS: Sodium Urine < 10 mmol/L (40-220)
[2024-04-25 18:13] VITALS: BP 167/117; PULSE 95; RESP 18; TEMP 98; O2SAT 99
[2024-04-25 18:14] LABS: Amphetamine Screen, Urine Neg (NEGATIVE); Barbiturate Scree,Urine Neg (NEGATIVE); Benzodiazephine Screen, Urine Neg (NEGATIVE); Cannabinoid Screen, Urine Pos (NEGATIVE); Cocaine Screen, Urine Neg (NEGATIVE); Opiate Scree,Urine Neg (NEGATIVE); Phencyclidine Screen, Urine Neg (NEGATIVE)
== END 2024-04-25 18:15 | disposition home or self-care (01) ==
LOC: ER 14:41
DX: E87.1 Hypo-osmolality and hyponatremia (principal); Z88.1 Allergy status to other antibiotic agents; Z88.0 Allergy status to penicillin; Z88.8 Allergy status to other drugs, medicaments and biological substances; Z79.899 Other long term (current) drug therapy
CPT/HCPCS: 36415; 71045; 80048; 80307; 80320; 81001; 82550; 83735; 83880; 84300; 85025; 96372; 99284; J1885

== ENCOUNTER 2024-05-15 09:28 | Inpatient (IN) | payer BC, MEDICAID ==
[~2024-05-15] VITALS: Ht 165.1 cm; Wt 93.6 kg
--- NOTE | 2024-05-15 10:37 | ED.PDOC ---
History of Present Illness HPI Comments 43M was sent to the ER by his PCP of Dr. Cobb w/ no prior Hx which is associated to the c/c of back pain. Pt reports on being unable to feel his left leg and left buttock, and that both of his feet are "tingling." Pt has no difficultly urinating. Pain Type of a 01/05. PMHx of HTN. SHx of Appendectomy. Social Hx of occasion alcohol use, and marijuana use, but denies tobacco use. Family Hx of DM. Denies chills, fever, N/V/D, SOB, CP or other associated symptoms, modifiers, or recent injuries at this time. Chief Complaint: Back Pain Time Seen by MD: 10:30 Primary Care Provider: NONE Reviewed Notes: Nurses Notes, Medications, Allergies Allergies: Coded Allergies: Penicillins (Verified Allergy, Severe, 04/15/21) Ampicillin (Verified Allergy, Unknown, 07/04/22) [place] (Verified Allergy, Unknown, 04/08/23) Erythromycin (Verified Allergy, Unknown, 02/06/23) Home Meds Active Scripts Ondansetron Odt 4MG Tab (ZOFRAN PO) 4 Mg Tb, 4 MG PO Q8HP PRN for 5 Days, #15 TAB ODT TAB-DISSOLVE IN MOUTH, THEN SWALLOW Prov:NINO CALHOUN MD 07/23/23 Lisinopril (Lisinopril) 40 Mg Tab, 1 TAB PO DAILY, #30 TAB 5 Refills Prov:NINO CALHOUN MD 07/23/23 Pantoprazole Sodium Sesquihydr (Protonix) 40 Mg Tab, 40 MG PO BID for 30 Days, #60 TAB 2 Refills Prov:NINFA QURESHI MD 04/10/23 Sucralfate (CARAFATE) 1 Gm Tab, 1 GM OR QIDACHS for 30 Days, #120 TAB 2 Refills Prov:NINFA QURESHI MD 04/10/23 Reported Medications Lisinopril (Lisinopril) 40 Mg Tab, 40 MG PO DAILY for 30 Days, MG 04/09/23 Information Source: Patient Mode of Arrival: Ambulatory Severity: Moderate Timing: Came on: Gradually Duration: Since onset Prehospital treatment: None Past Medical History PAST MEDICAL HISTORY: HTN Surgical History: Appendectomy Family History Family History: Family hx of DM Social History Smoker: Non-Smoker Alcohol: Occasionally Drugs: Marijuana Lives In: Home Constitutional: denies: chills, diaphoresis, fatigue, fever, malaise, sweats, weakness, others EENTM: denies: blurred vision, double vision, ear bleeding, ear discharge, ear drainage, ear pain, ear ringing, eye pain, eye redness, hearing loss, mouth pain, mouth swelling, nasal discharge, nose bleeding, nose congestion, nose pain, photophobia, tearing, throat pain, throat swelling, voice changes, others Respiratory: denies: cough, hemoptysis, orthopnea, SOB at rest, shortness of breath, SOB with excertion, stridor, wheezing, others Cardiovascular: denies: chest pain, dizzy spells, diaphoresis, Dyspnea on exertion, edema, irregular heart beat, left arm pain, lightheadedness, palpitations, PND, syncope, others Gastrointestinal: denies: abdomen distended, abdominal pain, blood streaked bowels, constipated, diarrhea, dysphagia, difficulty swallowing, hematemesis, melena, nausea, poor appetite, poor fluid intake, rectal bleeding, rectal pain, vomiting, others Genitourinary: denies: burning, dysuria, flank pain, frequency, hematuria, incontinence, penile discharge, penile sore, pain, testicle pain, testicle swelling, urgency, others Neurological: denies: dizziness, fainting, headache, left sided numbness, left sided weakness, numbness, paresthesia, pre-existing deficit, right sided numbness, right sided weakness, seizure, speech problems, tingling, tremors, weakness, others Musculoskeletal: reports: back pain; denies: gout, joint pain, joint swelling, muscle pain, muscle stiffness, neck pain, others Integumetry: denies: bruises, change in color, change in hair/nails, dryness, laceration, lesions, lumps, rash, wounds, others Allergic/Immunocompromised: denies: Difficulty Healing, Frequent Infections, Hives, Itching, others Hematologic/Lymphatic: denies: anemia, blood clots, easy bleeding, easy bruising, swollen glands, others Endocrine: denies: excessive hunger, excessive sweating, excessive thirst, excessive urination, flushing, intolerance to cold, intolerance to heat, unexplained weight gain, unexplained weight loss, others Psychiatric: denies: anxiety, bipolar disorder, depression, hopeless, panic disorder, schizophrenia, sleepless, suicidal, others All Other Systems: Reviewed and Negative Physical Exam General Appearance: Moderate Distress HEENT: Normal ENT Inspection, Pharynx Normal, TMs Normal Neck: Full Range of Motion, Non-Tender, Normal, Normal Inspection Respiratory: Chest Non-Tender, Lungs Clear, No Accessory Muscle Use, No Respiratory Distress, Normal Breath Sounds Cardiovascular: No Edema, No JVD, No Murmur, No Gallop, Normal Peripheral Pulses, Regular Rate/Rhythm Breast Exam: Deferred Gastrointestinal: No Organomegaly, Non Tender, No Pulsatile Mass, Normal Bowel Sounds, Soft Genitalia: Deferred Pelvic: Deferred Rectal: Deferred Extremities: No calf tenderness, Normal capillary refill, Normal inspection, Normal range of motion, Non-tender, No pedal edema Musculoskeletal : Location: Bilateral Extremity Location: Back Apperance: Limited ROM, Tenderness: Moderate Neurologic: Alert, blocking machine tender II-XII nml as Tested, No Motor Deficits, Normal Affect, Normal Mood, No Sensory Deficits Cerebellar Function: Normal Reflexes: Normal Skin: Dry, Normal Color, Warm Lymphatic: No Adenopathy Was a procedure done? Was a procedure done?: No Differential Dx Considerations may include: LS fracture LS strain, contusion, spinal stenosis X-Ray, Labs, Meds, VS Vital Signs Date Time Temp Pulse Resp B/P (MAP) Pulse Ox O2 Delivery O2 Flow Rate FiO2 05/15/24 10:46 95 20 96 Room Air* 0 21 05/15/24 10:25 90 18 143/89 (107) 95 05/15/24 10:11 98.5 116 20 129/83 (98) 96 Lab Test 05/15/24 10:27 Range/Units White Blood Count 8.9 4.4-10.8 10^3/uL Red Blood Count 5.15 4.5-5.90 10^6/uL Hemoglobin 16.8 13.5-17.5 g/dL Hematocrit 48.9 41.0-53.0 % Mean Corpuscular Volume 94.9 80.0-100.0 fL Mean Corpuscular Hemoglobin 32.5 H 28.0-32.0 pg Mean Corpuscular Hemoglobin Concent 34.3 32.0-36.0 g/dL Red Cell Distribution Width 14.0 11.8-14.3 % Platelet Count 326 140-450 10^3/uL Mean Platelet Volume 8.5 6.9-10.8 fL Neutrophils (%) (Auto) 73.4 37.0-80.0 % Lymphocytes (%) (Auto) 17.3 10.0-50.0 % Monocytes (%) (Auto) 6.7 0.0-12.0 % Eosinophils (%) (Auto) 1.8 0.0-7.0 % Basophils (%) (Auto) 0.8 0.0-2.0 % Neutrophils # (Auto) 6.6 1.6-8.6 10 ^3/uL Lymphocytes # (Auto) 1.5 0.4-5.4 10 ^3/uL Monocytes # (Auto) 0.6 0-1.3 10 ^3/uL Eosinophils # (Auto) 0.2 0-0.8 10 ^3/uL Basophils # (Auto) 0.1 0-0.2 10 ^3/uL Nucleated Red Blood Cells 0.1 % Prothrombin Time 10.7 9.3-11.8 sec Prothrombin Time INR 1.01 0.9-1.15 Activated Partial Thromboplast Time 25.2 24.5-34.5 SEC Sodium Level 135 L 136-145 mmol/L Potassium Level 4.1 3.5-5.1 mmol/L Chloride Level 102 98-107 mmol/L Carbon Dioxide Level 26 20-31 mmol/L Anion Gap 7 5-15 Blood Urea Nitrogen < 5 L 9-23 mg/dL Creatinine 0.78 0.700-1.30 mg/dL Glomerular Filtration Rate Calc 113 >90 mL/min BUN/Creatinine Ratio 6.4 L 10.0-20.0 Serum Glucose 122 H 74-106 mg/dL Calcium Level 9.3 8.7-10.4 mg/dL IV Hep-Lock was established The patient was being given morphine 2 mg IV push for the pain The patient was given Zofran for the nausea The CBC and chemistry panel are within normal limits We are going to admit the patient at this time because the patient can not ambulate. The patient was still having numbness to the left lower extremity The spine surgeon (Dr. Mcdowell) will be consulting on this patient Time of 1ST Reevaluation: 11:00 Reevaluation 1ST: Unchanged Patient Education/Counseling: Diagnosis, Treatment, Prognosis Family Education/Counseling: No Family Present Departure 1 Departure Time of Disposition: 11:41 Impression: Primary Impression: Herniated disc Qualified Codes: M51.27 - Other intervertebral disc displacement, lumbosacral region Additional Impression: Intractable pain Disposition: ADMITTED INPATIENT Admit to: Med Surg Condition: Fair Critical Care Note Critical Care Time?: No Stability Stability form required: Yes Unstable for transfer: ED Physician Assesment (Clinical assesment) Heart Score Heart Score: Heart Score Response (Comments) Value History N/A 0 EKG N/A 0 Age N/A 0 Risk Factors N/A 0 Troponin N/A 0 Total 0 I personally scribed for NINO CALHOUN MD ([email or web address]) on 05/15/24 at 10:37. Electronically submitted by Juve Alejandro ([email or web address]). NINO CALHOUN MD May 15, 2024 10:37
[2024-05-15] MEDS ORDERED: MORPHINE SULFATE 4 MG/ML SYR/VIAL IV ONE (10:45)
[2024-05-15 10:46] VITALS: PULSE 95; RESP 20; O2SAT 96
[2024-05-15 11:01] LABS: Basophils # (auto) 0.1 10 ^3/uL (0-0.2); Basophils % (auto) 0.8 % (0.0-2.0); Eosinophils # (auto) 0.2 10 ^3/uL (0-0.8); Eosinophils % (auto) 1.8 % (0.0-7.0); Hematocrit 48.9 % (41.0-53.0); Hemoglobin 16.8 g/dL (13.5-17.5); Lymphocytes # (auto) 1.5 10 ^3/uL (0.4-5.4); Lymphocytes % (auto) 17.3 % (10.0-50.0); Mean Corpuscular Hemoglobin 32.5 pg (28.0-32.0); Mean Corpuscular Hgb Conc. 34.3 g/dL (32.0-36.0); Mean Corpuscular Volume 94.9 fL (80.0-100.0); Monocytes # (auto) 0.6 10 ^3/uL (0-1.3); Monocytes % (auto) 6.7 % (0.0-12.0); Neutrophils # (auto) 6.6 10 ^3/uL (1.6-8.6); Neutrophils % (auto) 73.4 % (37.0-80.0); Nucleated Red Blood Cells % 0.1 %; Platelet Count (auto) 326 10^3/uL (140-450); Red Blood Cells 5.15 10^6/uL (4.5-5.90); White Blood Cell 8.9 10^3/uL (4.4-10.8)
[2024-05-15 11:07] LABS: Chloride 102 mmol/L (98-107); Potassium 4.1 mmol/L (3.5-5.1); Sodium 135 mmol/L (136-145)
[2024-05-15 11:08] LABS: Anion Gap 7 (5-15); Calcium 9.3 mg/dL (8.7-10.4); Carbon Dioxide 26 mmol/L (20-31)
[2024-05-15 11:13] LABS: Glucose 122 mg/dL (74-106)
[2024-05-15 11:15] LABS: BUN/Creatinine Ratio 6.4 (10.0-20.0); Blood Urea Nitrogen < 5 mg/dL (9-23)
[2024-05-15 11:17] LABS: INR 1.01 (0.9-1.15); Partial Thromboplastin Time 25.2 SEC (24.5-34.5); Prothrombin Time 10.7 sec (9.3-11.8)
[2024-05-15] MEDS: ONDANSETRON HCL 4 MG/2 ML VIAL IV ONE (11:37)
[2024-05-15] MEDS: MORPHINE SULFATE INJ 2 MG/ml SYRG IV ONE (11:38)
[2024-05-15] MEDS ORDERED: ACETAMINOPHEN 325 MG TAB PO PRN (12:00)
[2024-05-15] MEDS ORDERED: LORazepam 0.5 MG TAB PO PRN (12:00)
--- NOTE | 2024-05-15 12:05 | DVHHP2 ---
History of Present Illness Reason for Visit: "UNABLE TO WALK" History of Present Illness Patient is a 43 year-old M with a PMHx of Alcohol abuse and HTN who presented to the ED today with complaints of worsening back pain radiating to the left leg who is causing him unable to walk and has been worsening the past 1 week. Patient had a MRI few days ago at [facility] which showed L1 Lumbar Herniation with significant swelling causing his symptoms. I reviewed his imaging with Dr. Mcdowell who reported patient needs to have surgery for his symptoms. Patient denies urinary or bowel incontinence. Past Medical History SEE HPI Review of Systems Constitutional: No: Fever, Chills, Sweats, Weakness, Malaise, Other Eyes: No: Pain, Vision change, Conjunctivae inflammation, Eyelid inflammation, Other, Redness ENT: No: Ear pain, Ear discharge, Nose pain, Nose discharge, Nose congestion, Mouth pain, Mouth swelling, Throat pain, Throat swelling, Other Respiratory: No: Cough, Dry, Shortness of breath, SOB with excertion, Wheezing, Hemoptysis, Pleuritic Pain, Sputum, Wheezing, Other Cardiovascular: No: Chest Pain, Palpitations, Orthopnea, Paroxysmal Noc. Dyspnea, Edema, Lt Headedness, Other Gastrointestinal: No: Nausea, Vomiting, Abdominal Pain, Diarrhea, Constipation, Melena, Hematochezia, Other Genitourinary: No Dysuria, No Frequency, No Incontinence, No Hematuria, No Retention, No Other Musculoskeletal: back pain, leg pain Skin: No: Rash, Lesions, Jaundice, Bruising, Other Neurological: Weakness, Numbness Allergies: Coded Allergies: Penicillins (Verified Allergy, Severe, 04/15/21) Ampicillin (Verified Allergy, Unknown, 07/04/22) [facility] (Verified Allergy, Unknown, 04/08/23) Erythromycin (Verified Allergy, Unknown, 02/06/23) Exam Vital Signs Vital Signs Date Time Temp Pulse Resp B/P (MAP) Pulse Ox O2 Delivery O2 Flow Rate FiO2 05/15/24 11:38 75 19 103/71 05/15/24 10:46 96 Room Air* 0 21 05/15/24 10:11 98.5 General Appearance: Alert, Oriented X3, Cooperative, mild distress HEENT: Atraumatic Respiratory: Clear to auscultation, Normal air movement Cardiovascular: Regular rate, Normal S1, Normal S2 Abdominal: Normal bowel sounds, Soft Extremities: No clubbing Neuro: Other (Left Leg motor 2/5, sensory 3/5) Psych/Mental Status: Mental status NL Labs/Xrays Labs Test 05/15/24 10:27 Range/Units White Blood Count 8.9 4.4-10.8 10^3/uL Red Blood Count 5.15 4.5-5.90 10^6/uL Hemoglobin 16.8 13.5-17.5 g/dL Hematocrit 48.9 41.0-53.0 % Mean Corpuscular Volume 94.9 80.0-100.0 fL Mean Corpuscular Hemoglobin 32.5 H 28.0-32.0 pg Mean Corpuscular Hemoglobin Concent 34.3 32.0-36.0 g/dL Red Cell Distribution Width 14.0 11.8-14.3 % Platelet Count 326 140-450 10^3/uL Mean Platelet Volume 8.5 6.9-10.8 fL Neutrophils (%) (Auto) 73.4 37.0-80.0 % Lymphocytes (%) (Auto) 17.3 10.0-50.0 % Monocytes (%) (Auto) 6.7 0.0-12.0 % Eosinophils (%) (Auto) 1.8 0.0-7.0 % Basophils (%) (Auto) 0.8 0.0-2.0 % Neutrophils # (Auto) 6.6 1.6-8.6 10 ^3/uL Lymphocytes # (Auto) 1.5 0.4-5.4 10 ^3/uL Monocytes # (Auto) 0.6 0-1.3 10 ^3/uL Eosinophils # (Auto) 0.2 0-0.8 10 ^3/uL Basophils # (Auto) 0.1 0-0.2 10 ^3/uL Nucleated Red Blood Cells 0.1 % Prothrombin Time 10.7 9.3-11.8 sec Prothrombin Time INR 1.01 0.9-1.15 Activated Partial Thromboplast Time 25.2 24.5-34.5 SEC Sodium Level 135 L 136-145 mmol/L Potassium Level 4.1 3.5-5.1 mmol/L Chloride Level 102 98-107 mmol/L Carbon Dioxide Level 26 20-31 mmol/L Anion Gap 7 5-15 Blood Urea Nitrogen < 5 L 9-23 mg/dL Creatinine 0.78 0.700-1.30 mg/dL Glomerular Filtration Rate Calc 113 >90 mL/min BUN/Creatinine Ratio 6.4 L 10.0-20.0 Serum Glucose 122 H 74-106 mg/dL Calcium Level 9.3 8.7-10.4 mg/dL Assessment/Plan Assessment/Plan # Lumbar Radiculopathy with Disc Herniation - Spine Surgery Dr. 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 and dietary changes # Goals of care discussion >18 mins FULL CODE Plan discussed with: Patient My Orders Orders - KASSANDRA ACHARYA MD Procedure Category Date Status Time Admit ADMIT 05/15/24 Verified 11:57 Code Status CODE 05/15/24 Verified 11:57 Vital Signs [facility] 05/15/24 Verified 11:57 Review Orders With MAO 05/15/24 Verified Adm 11:57 Regular Diet DIET 05/15/24 Verified Lunch Sodium Chloride Lock PHA 05/15/24 Verified (Saline Lock Ns) 14:00 Lorazepam Tablet PHA 05/15/24 Verified (Ativan Tablet) 12:00 Acetaminophen Tablet PHA 05/15/24 Verified (Tylenol Tablet) 12:00 Notify Of Changes [facility] 05/15/24 Verified From Base 11:57 Advance Directive [facility] 05/15/24 Verified 11:57 Patient Condition ORDERS 05/15/24 Verified 11:57 Allergies [facility] 05/15/24 Verified 11:57 Hydrocodone-Acet PHA 05/15/24 Verified 5/325mg Tab (Reva 12:00 Ondansetron Hcl PHA 05/15/24 Verified (Zofran) 12:00 Morphine 2mg Iv Q4hprn PHA 05/15/24 Verified 12:00 Lovenox 40mg PHA 05/16/24 Verified 10:00 Urinalysis LAB 05/15/24 Verified 11:57 Drug Screen LAB 05/15/24 Verified 11:57 Blood Alcohol LAB 05/15/24 Verified 11:[address] [place] CONS 05/15/24 Verified [place](Spine) 11:57 Comprehensive LAB 05/16/24 Verified Metabolic Panel 04:00 Hemoglobin A1c LAB 05/16/24 Verified 04:00 Vitamin D, 25-Hydroxy LAB 05/15/24 Verified 11:57 Thyroid Stimulating LAB 05/16/24 Verified Hormone 04:00 Date of Service: May 15, 2024 Billing Provider: KASSANDRA ACHARYA MD Common Visit Codes: [id number] INP/OBS CARE (HIGH) Secondary Visit Codes: [id number] CARE PLAN 30 MINUTES KASSANDRA ACHARYA MD May 15, 2024 12:05
--- NOTE | 2024-05-15 12:15 | DVH ---
CHEST RADIOGRAPH Indication:pre op pain Technique: Single frontal view of the chest was obtained Comparison: XY CHEST XRAY 1 VIEW on DOS: 04/25/24, XY CHEST PORTABLE on DOS: 04/08/23, XY CHEST MIKAELA BLE on DOS: 02/06/23 FINDINGS: Lines and Tubes: None Lungs: No focal consolidation. Pleura: No effusion. No pneumothorax. Cardiomediastinal contours: Unremarkable Bones: No acute osseous abnormality. IMPRESSION: No acute cardiopulmonary disease.
[2024-05-15 13:07] VITALS: BP 127/73; PULSE 75; TEMP 98.2; O2SAT 95
[2024-05-15] MEDS: FOLIC ACID 1 MG, MAGNESIUM SULF SDV 50% 8 MEQ, MULTIPLE VITAMIN 10 ML, THIAMINE INJ 100... INJ SCH (13:22)
[2024-05-15] MEDS: SODIUM CHLOR 0.9% PF (SALINE LOCK) 10ML VIAL/SYR IV SCH (13:30)
[2024-05-15 13:45] LABS: Urine Bacteria None Seen /hpf (None Seen)
[2024-05-15 13:59] LABS: Urine Blood Negative /uL (Negative); Urine Clarity Clear (Clear); Urine Color Yellow (Yellow); Urine Protein, UAD TRACE (Negative); Urine Specific Gravity 1.019 (1.001-1.035); Urine Urobilinogen 4 mg/dL (Negative); Urine WBC <1 /hpf (0 - 3); Urine pH 7.5 (5.0-9.0)
[2024-05-15 14:05] LABS: Amphetamine Screen, Urine Neg (NEGATIVE); Barbiturate Scree,Urine Neg (NEGATIVE); Benzodiazephine Screen, Urine Neg (NEGATIVE)
[2024-05-15 14:06] LABS: Cannabinoid Screen, Urine Pos (NEGATIVE); Cocaine Screen, Urine Neg (NEGATIVE); Opiate Scree,Urine Pos (NEGATIVE); Phencyclidine Screen, Urine Neg (NEGATIVE)
[2024-05-15 17:30] VITALS: PULSE 80; RESP 20; O2SAT 97
[2024-05-15 20:00] VITALS: PULSE 85; RESP 18; O2SAT 97
[2024-05-15] MEDS: MORPHINE SULFATE INJ 2 MG/ml SYRG IV PRN (20:24)
[2024-05-15 21:17] VITALS: BP 133/90; PULSE 85; RESP 14; TEMP 98.2; O2SAT 97
[2024-05-16] VITALS (7 sets, daily range): BP systolic 112–143; BP diastolic 64–102; PULSE 66–95; RESP 14–18; TEMP 98–99.4; O2SAT 94–97
[2024-05-16] MEDS: HYDROcodone-ACET 5/325MG TAB PO PRN (02:18)
[2024-05-16 07:40] LABS: Alanine Aminotransferase 56 U/L (7-40); Albumin 3.8 g/dL (3.2-4.8); Alkaline Phosphatase 80 U/L (46-116); Anion Gap 6 (5-15); Aspartate Aminotransferase 48 U/L (13-40); Calcium 9.1 mg/dL (8.7-10.4); Carbon Dioxide 27 mmol/L (20-31); Chloride 104 mmol/L (98-107); Glucose 91 mg/dL (74-106); Potassium 4.2 mmol/L (3.5-5.1); Sodium 137 mmol/L (136-145)
[2024-05-16 07:41] LABS: Bilirubin, Total 1.7 mg/dL (0.2-1.0); Total Protein 6.4 g/dL (5.7-8.2)
[2024-05-16 07:42] LABS: BUN/Creatinine Ratio 7.7 (10.0-20.0); Blood Urea Nitrogen < 5 mg/dL (9-23)
[2024-05-16] MEDS: ENOXAPARIN SOD 40 MG/0.4 ML SYRINGE SC SCH (08:06)
--- NOTE | 2024-05-16 14:19 | DVHPN2 ---
Subjective Seen and examined at bedside, for surgery tomorrow. NPO after midnight Changes from previous H/P or p: No Changes Eyes: No Pain, No Vision change, No Conjunctivae inflammation, No Eyelid inflammation, No Other, No Redness ENT: No Ear pain, No Ear discharge, No Nose pain, No Nose discharge, No Nose congestion, No Mouth pain, No Mouth swelling, No Throat pain, No Throat swelling, No Other Cardiovascular: No Chest Pain, No Palpitations, No Orthopnea, No Paroxysmal Noc. Dyspnea, No Edema, No Lt Headedness, No Other Respiratory: No Cough, No Dry, No Shortness of breath, No SOB with excertion, No Wheezing, No Hemoptysis, No Pleuritic Pain, No Sputum, No Other Gastrointestinal: No Nausea, No Vomiting, No Abdominal Pain, No Diarrhea, No Constipation, No Melena, No Hematochezia, No Other Genitourinary: No Dysuria, No Frequency, No Incontinence, No Hematuria, No Retention, No Other Musculoskeletal: back pain, leg pain Skin: No Rash, No Lesions, No Jaundice, No Bruising, No Other Objective Vitals Vital Signs Date Time Temp Pulse Resp B/P (MAP) Pulse Ox O2 Delivery O2 Flow Rate FiO2 05/16/24 09:35 79 16 136/73 05/16/24 08:53 98.0 95 98.0 05/16/24 08:13 Room Air* 0 21 Intake/Output Intake and Output 05/16/24 07:00 Intake Total 945.494 ml Balance 945.494 ml Intake Oral 450 ml IV Total 495.494 ml # Voids 3 # Bowel Movements 1 Exam General Appearance: Alert, Oriented X3, Cooperative, mild distress HEENT: Atraumatic Respiratory: Clear to auscultation, Normal air movement Cardiovascular: Regular rate, Normal S1, Normal S2 Abdominal: Normal bowel sounds, Soft Extremities: No clubbing Neuro: Other (Left Leg motor 2/5, sensory 3/5) Psych/Mental Status: Mental status NL Medications Current Medications Medications Dose Ordered Sig/Neetu Route Start Time Stop Time Status Last Admin Dose Admin Sodium Chloride 10 ml Q8HR IV 05/15/24 14:00 05/16/24 06:30 10 ML Lorazepam 0.5 mg Q6HP PRN PO 05/15/24 12:00 Acetaminophen 650 mg Q6HP PRN PO 05/15/24 12:00 Acetaminophen/ Hydrocodone Bitart 1 tab Q4HP PRN PO 05/15/24 12:00 05/16/24 02:18 1 TAB Ondansetron HCl 4 mg Q4HP PRN IV 05/15/24 12:00 Morphine Sulfate 2 mg Q4HPRN PRN IV 05/15/24 12:00 05/16/24 08:07 2 MG Enoxaparin Sodium 40 mg DAILY SC 05/16/24 10:00 05/16/24 08:06 40 MG Folic Acid 1 mg/ Magnesium Sulfate 8 meq/ Multivitamins 10 ml/Thiamine HCl 100 mg/Sodium Chloride 1,013.2 ml @ 126.247 mls/hr DAILY@1800 INJ 05/15/24 13:00 05/15/24 13:22 126.247 MLS/HR Laboratory Results Laboratory Tests 05/15/24 10:27 05/16/24 06:04 Chemistry Test 05/16/24 06:04 Albumin 3.8 g/dL (3.2-4.8) Calcium Level 9.1 mg/dL (8.7-10.4) Total Protein 6.4 g/dL (5.7-8.2) LFT Test 05/16/24 06:04 Alanine Aminotransferase (ALT) 56 U/L (7-40) H Alkaline Phosphatase 80 U/L (46-116) Aspartate Amino Transferase (AST) 48 U/L (13-40) H Total Bilirubin 1.7 mg/dL (0.2-1.0) H HgA1c, TSH Test 05/16/24 06:04 Hemoglobin A1c 5.6 % A1C (<5.7) Thyroid Stimulating Hormone (TSH) 2.03 uIU/mL (0.55-4.78) Urinalysis Test 05/15/24 13:43 Urine Color Yellow (Yellow) Urine Clarity Clear (Clear) Urine pH 7.5 (5.0-9.0) Urine Specific [place] 1.019 (1.001-1.035) Urine Protein Trace (Negative) H Urine Ketones Negative (Negative) Urine Blood Negative /uL (Negative) Urine Nitrite Negative (Negative) Urine Bilirubin Negative (Negative) Urine Urobilinogen 4 mg/dL (Negative) H Urine Leukocyte Esterase Negative /uL (Negative) Urine RBC 1 /hpf (0 - 3) Urine WBC <1 /hpf (0 - 3) Urine Squamous Epithelial Cells Few /hpf (<5) Urine Bacteria None seen /hpf (None Seen) Urine Glucose Normal mg/dL (Normal) Microbiology Microbiology Date/Time Source Procedure Growth Status 05/15/24 18:02 Nose MRSA Screen - Final Complete Assessment/Plan Assessment/Plan # Lumbar Radiculopathy with Disc Herniation - Spine Surgery Dr. Mcdowell Consult - Pain control # HTN - HOLD Meds - BP on lower side # Vitamin D Def- Supplement # Transaminitis - Due to alcohol use? 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
[2024-05-16] MEDS: ERGOCALCIFEROL 50,000 UNIT(1.25MG) CAP PO SCH (15:09)
[2024-05-16] MEDS: THIAMINE HCL 100 MG TAB PO ONE (18:21)
[2024-05-16] MEDS: FOLIC ACID 1 MG TAB PO ONE (18:21)
[2024-05-16] MEDS: MULTIPLE VITAMINS W/ MINERALS TAB PO ONE (18:21)
[2024-05-16] MEDS: ONDANSETRON HCL 4 MG/2 ML VIAL IV PRN (19:16)
[2024-05-16] MEDS: LISINOPRIL 20 MG TAB PO ONE (19:40)
[2024-05-17] VITALS (10 sets, daily range): BP systolic 97–142; BP diastolic 60–89; PULSE 58–97; RESP 14–18; TEMP 97.8–99; O2SAT 94–100
[2024-05-17] MEDS: FOLIC ACID 1 MG TAB PO SCH (10:00)
[2024-05-17] MEDS: THIAMINE HCL 100 MG TAB PO SCH (10:00)
[2024-05-17] MEDS: LISINOPRIL 20 MG TAB PO SCH (10:00)
[2024-05-17] MEDS: MAGNESIUM OXIDE 400 MG TAB PO SCH (10:00)
[2024-05-17] MEDS: MULTIPLE VITAMINS W/ MINERALS TAB PO SCH (10:00)
[2024-05-17] MEDS ORDERED: SUCCINYLCHOLINE CHLORIDE 20 MG/ML 10ML VIAL IV ONE (12:14)
--- NOTE | 2024-05-17 13:39 | DVHPN2 ---
Subjective Seen and examined at bedside, for surgery today. Changes from previous H/P or p: No Changes Eyes: No Pain, No Vision change, No Conjunctivae inflammation, No Eyelid inflammation, No Other, No Redness ENT: No Ear pain, No Ear discharge, No Nose pain, No Nose discharge, No Nose congestion, No Mouth pain, No Mouth swelling, No Throat pain, No Throat swelling, No Other Cardiovascular: No Chest Pain, No Palpitations, No Orthopnea, No Paroxysmal Noc. Dyspnea, No Edema, No Lt Headedness, No Other Respiratory: No Cough, No Dry, No Shortness of breath, No SOB with excertion, No Wheezing, No Hemoptysis, No Pleuritic Pain, No Sputum, No Other Gastrointestinal: No Nausea, No Vomiting, No Abdominal Pain, No Diarrhea, No Constipation, No Melena, No Hematochezia, No Other Genitourinary: No Dysuria, No Frequency, No Incontinence, No Hematuria, No Retention, No Other Musculoskeletal: back pain, leg pain Skin: No Rash, No Lesions, No Jaundice, No Bruising, No Other Objective Vitals Vital Signs Date Time Temp Pulse Resp B/P (MAP) Pulse Ox O2 Delivery O2 Flow Rate FiO2 05/17/24 13:00 99.0 74 18 112/70 (84) 97 99.0 05/17/24 08:00 Room Air* 0 21 Intake/Output Intake and Output 05/17/24 07:00 Intake Total 1500 ml Balance 1500 ml Intake Oral 1500 ml # Voids 4 Exam General Appearance: Alert, Oriented X3, Cooperative, mild distress HEENT: Atraumatic Respiratory: Clear to auscultation, Normal air movement Cardiovascular: Regular rate, Normal S1, Normal S2 Abdominal: Normal bowel sounds, Soft Extremities: No clubbing Neuro: Other (Left Leg motor 2/5, sensory 3/5) Psych/Mental Status: Mental status NL Medications Current Medications Medications Dose Ordered Sig/Neetu Route Start Time Stop Time Status Last Admin Dose Admin Sodium Chloride 10 ml Q8HR IV 05/15/24 14:00 05/17/24 06:11 10 ML Lorazepam 0.5 mg Q6HP PRN PO 05/15/24 12:00 Acetaminophen 650 mg Q6HP PRN PO 05/15/24 12:00 Acetaminophen/ Hydrocodone Bitart 1 tab Q4HP PRN PO 05/15/24 12:00 05/16/24 20:16 1 TAB Ondansetron HCl 4 mg Q4HP PRN IV 05/15/24 12:00 05/16/24 19:16 4 MG Morphine Sulfate 2 mg Q4HPRN PRN IV 05/15/24 12:00 05/16/24 15:09 2 MG Enoxaparin Sodium 40 mg DAILY SC 05/16/24 10:00 05/16/24 08:06 40 MG Ergocalciferol 50,000 unit Q7D PO 05/16/24 14:30 05/16/24 15:09 50,000 UNIT Folic Acid 1 mg DAILY PO 05/17/24 10:00 Thiamine HCl 100 mg DAILY PO 05/17/24 10:00 Multivitamins/ Minerals 1 tab DAILY PO 05/17/24 10:00 Magnesium Oxide 400 mg DAILY PO 05/17/24 10:00 Lisinopril 40 mg DAILY PO 05/17/24 10:00 Laboratory Results Laboratory Tests 05/15/24 10:27 05/16/24 06:04 Urinalysis Test 05/15/24 13:43 Urine Color Yellow (Yellow) Urine Clarity Clear (Clear) Urine pH 7.5 (5.0-9.0) Urine Specific [place] 1.019 (1.001-1.035) Urine Protein Trace (Negative) H Urine Ketones Negative (Negative) Urine Blood Negative /uL (Negative) Urine Nitrite Negative (Negative) Urine Bilirubin Negative (Negative) Urine Urobilinogen 4 mg/dL (Negative) H Urine Leukocyte Esterase Negative /uL (Negative) Urine RBC 1 /hpf (0 - 3) Urine WBC <1 /hpf (0 - 3) Urine Squamous Epithelial Cells Few /hpf (<5) Urine Bacteria None seen /hpf (None Seen) Urine Glucose Normal mg/dL (Normal) Microbiology Microbiology Date/Time Source Procedure Growth Status 05/15/24 18:02 Nose MRSA Screen - Final Complete Assessment/Plan Assessment/Plan # Lumbar Radiculopathy with Disc Herniation - Spine Surgery Dr. Mcdowell Consult - Pain control # HTN - HOLD Meds - BP on lower side # Vitamin D Def- Supplement # Transaminitis - Due to alcohol use? 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 # Goals of care discussion >18 mins FULL CODE Plan discussed with: Patient My Orders Orders - ACHARYA,IMRAN M MD Procedure Category Date Status Time Npo After Midnight DIET 05/16/24 Transmitted Dinner Ergocalciferol PHA 05/16/24 In Process (Vitamin D 50,000 14:30 Folic Acid Tablet PHA 05/17/24 In Process 10:00 Thiamine Tab PHA 05/17/24 In Process 10:00 Multiple Vitamin W PHA 05/17/24 In Process Mineral Tab (Mvi W/ M 10:00 Magnesium Oxide PHA 05/17/24 In Process Tablet (Mag-Ox Tablet) 10:00 Date of Service: May 17, 2024 Billing Provider: KASSANDRA ACHARYA MD Common Visit Codes: [id number] INP/OBS CARE(HIGH) KASSANDRA ACHARYA MD May 17, 2024 13:39
--- NOTE | 2024-05-17 13:59 | DVHHP2 ---
Admitting Diagnosis: lumbar spinal stenosis with severe radiculopathy and progressive neurologic deficit History of Present Illness HPI This is a pleasant but unfortunate gentleman who came in twice into the ER and [facility] with incapacitating low back pain with radiation of pain down the legs to the feet with severe parasthesias in both legs and feet with progressive inability to ambulate. his inability to ambulate made it impossible to perform his activities of daily living. he couldn't even stand for more than 90 second without having to sit down due to severe pain in the LE she is losing feeling in his legs also he has had therapy and shots previouslly he is asking for surgical options Home Meds Active Scripts Ondansetron Odt 4MG Tab (ZOFRAN PO) 4 Mg Tb, 4 MG PO Q8HP PRN for 5 Days, #15 TAB ODT TAB-DISSOLVE IN MOUTH, THEN SWALLOW Prov:NINO CALHOUN MD 07/23/23 Lisinopril (Lisinopril) 40 Mg Tab, 1 TAB PO DAILY, #30 TAB 5 Refills Prov:NINO CALHOUN MD 07/23/23 Pantoprazole Sodium Sesquihydr (Protonix) 40 Mg Tab, 40 MG PO BID for 30 Days, #60 TAB 2 Refills Prov:NINFA QURESHI MD 04/10/23 Sucralfate (CARAFATE) 1 Gm Tab, 1 GM OR QIDACHS for 30 Days, #120 TAB 2 Refills Prov:NINFA QURESHI MD 04/10/23 Reported Medications Lisinopril (Lisinopril) 40 Mg Tab, 40 MG PO DAILY for 30 Days, MG 04/09/23 Past Medical History Patient Family History: Diabetes mellitus G8 MOTHER G8 FATHER Hypertension G8 MOTHER G8 FATHER H&P Exam Vital Signs Vital Signs Date Time Temp Pulse Resp B/P (MAP) Pulse Ox O2 Delivery O2 Flow Rate FiO2 05/17/24 13:00 99.0 74 18 112/70 (84) 97 99.0 05/17/24 08:00 Room Air* 0 21 General Appeara: Well developed, Well nourished, Normal Appearance Head Exam: Normal inspection Neck Exam: Normal inspection, Non-tender, Normal alignment Eye Exam: bilateral eye Normal inspection, bilateral eye PERRL, bilateral eye EOMI Nasal Exam: Normal inspection Mouth: Normal Inspection Pulmonary/Respiratory: Normal inspection, Normal breath sounds, Chest non- tender, Lungs clear Cardiovascular/Chest: Normal inspection, Regular rate, Normal Rhythm Abdominal Exam: Normal bowel sounds, Soft, No tenderness, No hepatospenomegaly, No masses Rectal Exam: Deferred Back Exam: Muscle spasm, Vertebral tenderness Pelvic Exam: Not done Male Genital Exam: Not done Shoulder Exam: Normal inspection, Non-tender, Normal ROM Elbow/Forearm Exam: Normal inspection, Non-tender, Normal ROM Wrist Exam: Normal inspection, Non-tender, Normal ROM Hand Exam: Normal inspection, Non-tender, Normal ROM Hip exam: Normal inspection, Non-tender, Normal range of motion Legs: bilateral leg non-tender, bilateral leg normal inspection, bilateral leg normal range of motion, bilateral leg no evidence of injury Knees: bilateral knee non-tender, bilateral knee normal inspection, bilateral knee normal range of motion, bilateral knee no evidence of injury Ankle Exam: bilateral ankle Normal inspection, bilateral ankle Non-tender, bi lateral ankle Normal range of motion, bilateral ankle No evidence of injury Foot: bilateral foot non-tender, bilateral foot normal inspection, bilateral foot normal range of motion, bilateral foot no evidence of injury Tendon/ Neuro: Motor deficit, Sensory deficit [employer] Exam: Normal hearing, Normal speech, PERRL Motor/Sensory: Weak motor strength RLE, Weak motor strength LLE Deep Tendon Ref: All intact Neuro/Mental St: Alert, Oriented Appearance: Appropriate appearance, Appropriate insight Eye contact/ Speech: Cooperative, Good eye contact, Normal speech Coordination/Gait: Normal finger->nose, Normal gait, Negative Romberg's sign Skin Exam: Normal inspection, Normal color, Warm/dry Lymphatic: Normal inspection Labs/Xrays AD DE PAZ : 1980 Sex: M Date of Service: 05-11-2024 Addendum [address] Cobb at 5:02 PM EST. IF YOU ARE A PROVIDER AND WOULD LIKE TO CONTACT THE RADIOLOGIST PLEASE CALL . IF YOU ARE THE PATIENT AND HAVE QUESTIONS REGARDING YOUR RESULTS PLEASE CONTACT YOUR PROVIDER DIRECTLY. End of addendum for accession: [id number] Dictated: 05-13-2024 2:02:15 PM Electronically Signed By: Ajay Quan MD 05-13-2024 2:02:15 PM Addendum 1 ADDENDUM I personally contacted the ordering MD office to relay these critical findings at 4:48 PM EST on 05/13/2024. IF YOU ARE A PROVIDER AND WOULD LIKE TO CONTACT THE RADIOLOGIST PLEASE CALL . IF YOU ARE THE PATIENT AND HAVE QUESTIONS REGARDING YOUR RESULTS PLEASE CONTACT YOUR PROVIDER DIRECTLY. End of addendum for accession: [id number] Dictated: 05-13-2024 1:48:20 PM Electronically Signed By: Ajay Quan MD 05-13-2024 1:48:20 PM Original Report EXAM: MRI LUMBAR SPINE WITHOUT CONTRAST HISTORY: Low back pain with numbness radiating to the bilateral lower extremity. TECHNIQUE: Sagittal T2, sagittal STIR, sagittal T1, and axial T2 MR images of the lumbar spine without contrast. COMPARISON: None available. FINDINGS: There is grade 1 retrolisthesis of L5 on S1. The lumbar lordosis is otherwise preserved. Vertebral body heights are preserved. The marrow signal is preserved. There is disc desiccation and mild height loss at L5-S1. Otherwise disc height and signal are preserved. The conus terminates normally at the lower L1 level. The paravertebral soft tissues are unremarkable. SIGNIFICANT FINDINGS BY LEVEL: T12-L1: No disc abnormality or facet arthropathy. No neural foraminal or spinal canal stenosis. L1-2: No disc abnormality or facet arthropathy. No neural foraminal or spinal canal stenosis. L2-3: No disc abnormality or facet arthropathy. No neural foraminal or spinal canal stenosis. L3-4: No disc abnormality or facet arthropathy. No neural foraminal or spinal canal stenosis. L4-5: No disc abnormality or facet arthropathy. No neural foraminal or spinal canal stenosis. L5-S1: A 6 mm disc bulge asymmetric to the right lateral recess effacing the right more than left lateral recess. Superimposed on this, a 1.0 x 1.3 x 0.9 cm caudally migrating extruded disc located centrally and to the left which nearly completely effaces the spinal canal resulting in cauda equina compression, impinging multiple nerve roots, most prominently the bilateral S1 nerve roots. No facet arthropathy. No neural foraminal stenosis. IMPRESSION: Critical spinal canal stenosis with cauda equina compression due to an L5-S1 disc extrusion superimposed on a disc bulge. IF YOU ARE A PROVIDER AND WOULD LIKE TO CONTACT THE RADIOLOGIST PLEASE CALL . IF YOU ARE THE PATIENT AND HAVE QUESTIONS REGARDING YOUR RESULTS PLEASE CONTACT YOUR PROVIDER DIRECTLY. End of diagnostic report for accession: [id number] Labs Test 05/16/24 06:04 05/15/24 13:43 05/15/24 10:27 Range/Units Sodium Level 137 136-145 mmol/L Potassium Level 4.2 3.5-5.1 mmol/L Chloride Level 104 98-107 mmol/L Carbon Dioxide Level 27 20-31 mmol/L Anion Gap 6 5-15 Blood Urea Nitrogen < 5 L 9-23 mg/dL Creatinine 0.65 L 0.700-1.30 mg/dL Glomerular Filtration Rate Calc 120 >90 mL/min BUN/Creatinine Ratio 7.7 L 10.0-20.0 Serum Glucose 91 74-106 mg/dL Hemoglobin A1c 5.6 <5.7 % A1C Calcium Level 9.1 8.7-10.4 mg/dL Total Bilirubin 1.7 H 0.2-1.0 mg/dL Aspartate Amino Transferase (AST) 48 H 13-40 U/L Alanine Aminotransferase (ALT) 56 H 7-40 U/L Alkaline Phosphatase 80 46-116 U/L Total Protein 6.4 5.7-8.2 g/dL Albumin 3.8 3.2-4.8 g/dL Thyroid Stimulating Hormone (TSH) 2.03 0.55-4.78 uIU/mL Urine Color Yellow Yellow Urine Clarity Clear Clear Urine pH 7.5 5.0-9.0 Urine Specific [place] 1.019 1.001-1.035 Urine Protein Trace H Negative Urine Ketones Negative Negative Urine Blood Negative Negative /uL Urine Nitrite Negative Negative Urine Bilirubin Negative Negative Urine Urobilinogen 4 H Negative mg/dL Urine Leukocyte Esterase Negative Negative /uL Urine RBC 1 0 - 3 /hpf Urine WBC <1 0 - 3 /hpf Urine Squamous Epithelial Cells Few <5 /hpf Urine Bacteria None seen None Seen /hpf Urine Glucose Normal Normal mg/dL Urine Opiates Screen Pos NEGATIVE Urine Fentanyl Screen Neg NEGATIVE Urine Barbiturates Screen Neg NEGATIVE Urine Phencyclidine Screen Neg NEGATIVE Urine Amphetamines Screen Neg NEGATIVE Urine Benzodiazepines Screen Neg NEGATIVE Urine Cocaine Screen Neg NEGATIVE Urine Cannabinoids Screen Pos NEGATIVE White Blood Count 8.9 4.4-10.8 10^3/uL Red Blood Count 5.15 4.5-5.90 10^6/uL Hemoglobin 16.8 13.5-17.5 g/dL Hematocrit 48.9 41.0-53.0 % Mean Corpuscular Volume 94.9 80.0-100.0 fL Mean Corpuscular Hemoglobin 32.5 H 28.0-32.0 pg Mean Corpuscular Hemoglobin Concent 34.3 32.0-36.0 g/dL Red Cell Distribution Width 14.0 11.8-14.3 % Platelet Count 326 140-450 10^3/uL Mean Platelet Volume 8.5 6.9-10.8 fL Neutrophils (%) (Auto) 73.4 37.0-80.0 % Lymphocytes (%) (Auto) 17.3 10.0-50.0 % Monocytes (%) (Auto) 6.7 0.0-12.0 % Eosinophils (%) (Auto) 1.8 0.0-7.0 % Basophils (%) (Auto) 0.8 0.0-2.0 % Neutrophils # (Auto) 6.6 1.6-8.6 10 ^3/uL Lymphocytes # (Auto) 1.5 0.4-5.4 10 ^3/uL Monocytes # (Auto) 0.6 0-1.3 10 ^3/uL Eosinophils # (Auto) 0.2 0-0.8 10 ^3/uL Basophils # (Auto) 0.1 0-0.2 10 ^3/uL Nucleated Red Blood Cells 0.1 % Prothrombin Time 10.7 9.3-11.8 sec Prothrombin Time INR 1.01 0.9-1.15 Activated Partial Thromboplast Time 25.2 24.5-34.5 SEC Vitamin D 25-Hydroxy 7.1 L 30.0-100 ng/mL Plasma/Serum Blood Alcohol < 3.0 <10 mg/dL Microbiology Date/Time Source Procedure Growth Status 05/15/24 18:02 Nose MRSA Screen - Final Complete Assessment/Plan Admitting Diagnosis: massive herniated L5/S1 disc with severe spinal stenosis causing incpacitating low back pain radiculopathy and progressive neurologic deficit Plan admit for surgical treatment of lumbar spine pathology Plan discussed with: Patient EDD VALERIO MD May 17, 2024 13:59
[2024-05-17] MEDS: LIDOCAINE W/ EPINEPHRINE 1% 20ML VIAL ONE (14:01)
[2024-05-17] MEDS: TRANEXAMIC ACID 20 ML ONE (14:01)
[2024-05-17] MEDS ORDERED: fentaNYL CITRATE 100 MCG/2 ML VL ONE (14:05)
[2024-05-17] MEDS ORDERED: MEPERIDINE HCL (50 MG/ML) 1 ML VIAL ONE (14:05)
[2024-05-17] MEDS ORDERED: LIDOCAINE 1% INJ PF 5ML AMP ONE (14:05)
[2024-05-17] MEDS ORDERED: PROPOFOL 10 MG/ML 20 ML IV ONE ×2 (14:05→15:42)
[2024-05-17] MEDS ORDERED: SODIUM CHLORIDE LOCK 50 ML ONE (14:05)
[2024-05-17] MEDS ORDERED: ONDANSETRON HCL 4 MG/2 ML VIAL ONE (14:05)
[2024-05-17] MEDS ORDERED: ROCURONIUM 10MG/ML 10ML VIAL IV ONE (14:05)
[2024-05-17] MEDS ORDERED: MIDAZOLAM HCL 2MG/2ML 2ml VIAL (1mg/ml) ONE (14:05)
[2024-05-17] MEDS ORDERED: fentaNYL CITRATE 5 ML ONE (14:06)
[2024-05-17] MEDS ORDERED: KETAMINE 50mg/ML 1ml syringe ONE (14:50)
[2024-05-17] MEDS: levoFLOXacin 500MG 100 ML IV ONE (15:30)
[2024-05-17] MEDS ORDERED: SUGAMMADEX 200mg/2ml Vial (100MG/ML) IV ONE (16:21)
--- NOTE | 2024-05-17 17:12 | DVHOP2 ---
Operative Report - 2 Report Details Date: 05/17/24 Preop Diagnosis: lumbar spondylolisthesis and massive L5/S1 herniated disc causing spinal stenosis /incapacitating radiculopathy and progressive neurologic deficit Postop Diagnosis: same Surgeon: Rigo Mcdowell MD Puddler Pile Driving: Lucrecia Sousa NP Anesthesiologist: Kathleen Glez MD Anesthesia: General Consent: The patient was informed of the risks and benefits of the procedure. These include but are not limited to complications of anesthesia, postoperative infection, incomplete relief of symptoms, recurrence of symptoms, damage to blood vessels, nerves and tendons, deep venous thrombosis, pulmonary embolism and possible need for repeat surgery in the future. Name of Procedure Performed see detailed note Procedure Details Procedure Details: Pre-op Diagnosis: Lumbar Degenerative Disk Disease and Lumbar Spinal Stenosis due to massive L5/S1 disc herniation causing Incapacitating back pain, radiculopathy and progressive neurologic deficit Post-op Diagnosis: Lumbar Degenerative Disk Disease and Lumbar Spinal Stenosis due to massive L5/S1 disc herniation causing Incapacitating back pain, radiculopathy and progressive neurologic deficit Procedure: Lumbar 5 laminectomy with Lumbar 5 foraminotomies and facetectomies along with a L5/S1 discectomy to decompress central canal and Lumbar 5 nerve roots Bilateral Sacral 1 Laminotomies/Foraminotomies/Facetectomies to decompress the central canal and Bilateral Sacral 1 nerve Roots Lumbar 5 to sacral 1 posterior spinal interbody fusion with PEEK cage Lumbar 5 to sacral 1 posterior spinal instrumentation with Pedicle screws - xtant spine Local Bone Autograft For Fusion Allograft Bone Substitute (Bacterin) to augment Fusion Use of Demineralized Bone Matrix to Augment Fusion Microscope For Microdissection Surgeon: Rigo Mcdowell MD Assist: Lucrecia Sousa Anesthesia: General Fluids and EBL: See anesthesia note Patient was seen in the Pre Anesthesia Care Unit (PACU) and the operative site was initialed by me. All questions were answered to the patients satisfaction and chart reviewed. The patient was taken to the operative room where pre-operative antibiotics were given 30 minutes prior to incision. General anesthesia was induced and neuro-monitoring leads placed. Mclaughlin catheter was placed. The patient was turned prone onto the [facility] [place] spinal table. While positioning, I made sure that the belly was free to allow proper expansion of the lungs. The hips were extended and all bony prominences padded. The shoulders were abducted 80 degree and the elbows flexed 100 degrees with no tension on the brachial plexus. I check the foot arterial pulses and they were palpable. The patient was prepped and draped and time out was taken at this time per usual protocol. At this time, the C-arm fluoroscope was brought in and was used to stacey the incision borders proximally and distally. Using a Number 10 Blade, an incision was made extending it proximally and distally per C arm stacey from the posterior spinous process of lumbar 5 to sacral 1 , down to the lumbo- dorsal fascia. All bleeding was controlled with electrocautery. Self-retaining retractors were placed. Electrocautery was then used to take down the lumbo- dorsal fascia, to free the muscle off the bone bilaterally. A Fortunato retractor was placed over the posterior spinous process proximally and a lateral C-arm fluoroscope image was taken to insure we were at the correct level. Next, using bovie electro cautery, The deep fascia laterally to the facet joints was removed to expose the transverse processes of lumbar 5, sacral 1 while taking care to avoid injuring the facet capsule at the proximal end of the incision. Next, the microscope was bought in for visualization and using a Luxell rongeur, the posterior spinous process of lumbar 5 and sacral 1 were removed and the bone was saved for use as local autograft. I used alternating Kerison 2 mm and 3 mm rongeurs to perform central laminectomies of lumbar pained and bilateral laminotomies/foraminotomies/facetectomies of sacral 1 to decompress the central canal. Next using alternating Kerison 2mm and 3 mm rongeurs, the superior articular facets of lumbar 5 and sacral 1 were removed bilaterally to decompress the lateral recess (facetectomies) and then extended proximally to decompress the foramen bilaterally (foraminotomies). Next, focus was given to the massive right sided L5/S1 herniated disc and 90 p ercent of the herniation was removed in one piece. The rest removed when preparing the dis space. I used a ball tipped nerve probed to insure that the respective nerve roots were able to be mobilized 5mm in each direction were unimpeded in the lateral recess and foramen. Next I carefully inspected the dura to make sure no durotomy was visible and it was not. Next I retracted the right sacral 1 nerve medially and used increasing size mara until a 11/28mm PEEEK cage was placed at the L5/S1 level. Next, I covered the exposed dura with gelfoam soaked in thrombin and the microscope was wheeled away from the operative filed. The C-arm fluoroscope was brought in and perfect AP views of the Lumbar 5 and sacral 1 pedicles were obtained. I placed bilateral pedicle screws at these levels by: using a Lenke awl to make a mapping pilot hole, then a ball tip robe to make sure there was no pedicle breach, then a tap to prepare the track and a 6 mm diameter and at lumbar 5 45mm and at sacral 1 35mmm length pedicle screw placed bilaterally. This step to place bilateral pedicle screws was repeated up to the lumbar 5/sacral level. Next, the c-arm fluoroscope took an AP and lateral x-ray to ensure proper placement of the pedicle screws. Next, the neuro-stimulation probe was placed over the tip of each screw and each screw stimulated only after a current greater than 10 mA was delivered to the screw. Next , I took a [place] Drill to decorticate the transverse process which were exposed and local bone graft, Bacterin allograft bone substitute and Demineralized bone matrix were placed along the inter transverse process intervals bilaterally (the fusion bed). Next a curved amparo sized to fit the pedicle screw interval was placed and secured to each pedicle screw using set screws, The set screws were tightened using a torque screwdriver (set to 10 N*M torque) to secure the amparo to the pedicle screws bilaterally. Final AP and lateral C arm fluoroscopic films were taken at this time. Next a 10 Frisian diameter Hemovac drain was laced deep to the lumbo- dorsal fascia. The lumbo-dorsal fascia was closed with interrupted 0-Vicry sutures. The subcutaneous tissue was closed with interrupted 2-0 Vicryl sutures. The skin was closed with 2-0 nylon subcuticular suture. TLSO Brace and bone stimulator to be placed post op. Sterile dressings were placed. The pt. was turned supine onto the stretcher, extubated and taken to the recovery room in stable condition. Additional Notes: Condition Stable Disposition Still a Patient RIGO MCDOWELL MD May 17, 2024 17:12
[2024-05-17] MEDS ORDERED: NITROGLYCERIN 0.4 MG SL TAB SL PRN (17:15)
[2024-05-17] MEDS ORDERED: MORPHINE SULFATE INJ 2 MG/ml SYRG IV PRN (17:15)
[2024-05-17] MEDS ORDERED: ONDANSETRON HCL 4 MG/2 ML VIAL IV PRN (17:15)
[2024-05-17] MEDS ORDERED: ACETAMINOPHEN 325 MG TAB PO PRN (17:15)
[2024-05-17] MEDS ORDERED: HYDROmorphone HCL 2 MG/ML VL/or syr ONE (17:24)
[2024-05-17] MEDS: FOLIC ACID 1 MG, MAGNESIUM SULF SDV 50% 8 MEQ, MULTIPLE VITAMIN 10 ML, THIAMINE INJ 100... INJ SCH (18:00)
[2024-05-17] MEDS: ONDANSETRON HCL 4 MG/2 ML VIAL IV ONE (18:10)
[2024-05-17] MEDS: CYCLOBENZAPRINE HCL 10 MG TAB PO SCH (18:10)
[2024-05-17] MEDS: HYDROmorphone HCL 2 MG/ML VL/or syr IV PRN (18:12)
--- NOTE | 2024-05-17 18:20 | DVH ---
EXAM: XY C ARM FLUOROSCOPY UP TO 60MIN, XY LUMBAR SPINE 3 VIEW HISTORY: L5-S1 POSTERIOR SPINAL DECOMPRESSION/ FUSION FLUOROSCOPY TIME: 2 minutes 11 seconds Total dose: 98.0 mGy FLUOROSCOPY IMAGES: 10 TECHNIQUE: Intraoperative radiographs of the lumbar spine were obtained. COMPARISON: None FINDINGS/IMPRESSION: Refer to intraoperative report for further evaluation.
[2024-05-17] MEDS: D5W/SOD CHLO 0.9% 1,000 ML IV SCH (20:23)
[2024-05-17] MEDS: HYDROcodone-ACET 10/325MG TAB PO PRN (21:45)
[2024-05-17] MEDS: DOCUSATE SOD 100 MG CAP PO SCH (21:45)
[2024-05-17] MEDS: ceFAZolin 1GM/50ML 50 ML IV SCH (21:52)
[2024-05-18] VITALS (7 sets, daily range): BP systolic 97–123; BP diastolic 53–84; PULSE 67–90; RESP 16–19; TEMP 98.1–98.9; O2SAT 94–97
[2024-05-18] MEDS: MORPHINE SULFATE INJ 2 MG/ml SYRG IV PRN (10:25)
--- NOTE | 2024-05-18 11:38 | PEER ---
Peer to Peer Review Time DATE: 05/18/24 TIME: 11:37 Review and Recommendations: Approved for inpatient # [id number] BY DR SIERRA. KASSANDRA ACHARYA MD May 18, 2024 11:38
--- NOTE | 2024-05-18 18:08 | DVHPN2 ---
Subjective Seen and examined at bedside, s/p Surgery. Drain still in place. Moving lower extremities without difficulty. Changes from previous H/P or p: No Changes Eyes: No Pain, No Vision change, No Conjunctivae inflammation, No Eyelid inflammation, No Other, No Redness ENT: No Ear pain, No Ear discharge, No Nose pain, No Nose discharge, No Nose congestion, No Mouth pain, No Mouth swelling, No Throat pain, No Throat swelling, No Other Cardiovascular: No Chest Pain, No Palpitations, No Orthopnea, No Paroxysmal Noc. Dyspnea, No Edema, No Lt Headedness, No Other Respiratory: No Cough, No Dry, No Shortness of breath, No SOB with excertion, No Wheezing, No Hemoptysis, No Pleuritic Pain, No Sputum, No Other Gastrointestinal: No Nausea, No Vomiting, No Abdominal Pain, No Diarrhea, No Constipation, No Melena, No Hematochezia, No Other Genitourinary: No Dysuria, No Frequency, No Incontinence, No Hematuria, No Retention, No Other Skin: No Rash, No Lesions, No Jaundice, No Bruising, No Other Objective Vitals Vital Signs Date Time Temp Pulse Resp B/P (MAP) Pulse Ox O2 Delivery O2 Flow Rate FiO2 05/18/24 16:42 98.9 80 18 108/60 (76) 97 98.9 05/18/24 08:10 Room Air* 0 21 Intake/Output Intake and Output 05/18/24 07:00 Intake Total 610 ml Output Total 800 ml Balance -190 ml Intake Oral 400 ml IV Total 210 ml Output Urine Total 800 ml Drainage Total 0 ml Exam General Appearance: Alert, Oriented X3, Cooperative, No distress HEENT: Atraumatic Respiratory: Clear to auscultation, Normal air movement Cardiovascular: Regular rate, Normal S1, Normal S2 Abdominal: Normal bowel sounds, Soft Extremities: No clubbing Neuro: Other (Left Leg motor 4/5, sensory 4/5). Drain in place Psych/Mental Status: Mental status NL Medications Current Medications Medications Dose Ordered Sig/Neetu Route Start Time Stop Time Status Last Admin Dose Admin Sodium Chloride 10 ml Q8HR IV 05/15/24 14:00 05/18/24 14:52 10 ML Lorazepam 0.5 mg Q6HP PRN PO 05/15/24 12:00 Enoxaparin Sodium 40 mg DAILY SC 05/16/24 10:00 05/18/24 10:23 40 MG Ergocalciferol 50,000 unit Q7D PO 05/16/24 14:30 05/16/24 15:09 50,000 UNIT Folic Acid 1 mg DAILY PO 05/17/24 10:00 Thiamine HCl 100 mg DAILY PO 05/17/24 10:00 Multivitamins/ Minerals 1 tab DAILY PO 05/17/24 10:00 Magnesium Oxide 400 mg DAILY PO 05/17/24 10:00 Lisinopril 40 mg DAILY PO 05/17/24 10:00 05/18/24 10:23 40 MG Ondansetron HCl 4 mg Q4HP PRN IV 05/17/24 17:15 Acetaminophen 650 mg Q6HP PRN PO 05/17/24 17:15 Acetaminophen/ Hydrocodone Bitart 1 tab Q6HP PRN PO 05/17/24 17:15 05/18/24 17:30 1 TAB Morphine Sulfate 1 mg Q4HP PRN IV 05/17/24 17:15 05/18/24 15:04 1 MG Cyclobenzaprine HCl 10 mg TID PO 05/17/24 22:00 05/18/24 14:51 10 MG Docusate Sodium 100 mg BID PO 05/17/24 22:00 05/18/24 10:23 100 MG Cefazolin Sodium 50 ml @ 100 mls/hr Q8HR IV 05/17/24 22:00 05/19/24 14:29 05/18/24 14:52 100 MLS/HR Nitroglycerin 0.4 mg Q5MINP PRN SL 05/17/24 17:15 Morphine Sulfate 2 mg Q30M PRN IV 05/17/24 17:15 Laboratory Results Laboratory Tests 05/15/24 10:27 05/16/24 06:04 Urinalysis Test 05/15/24 13:43 Urine Color Yellow (Yellow) Urine Clarity Clear (Clear) Urine pH 7.5 (5.0-9.0) Urine Specific [place] 1.019 (1.001-1.035) Urine Protein Trace (Negative) H Urine Ketones Negative (Negative) Urine Blood Negative /uL (Negative) Urine Nitrite Negative (Negative) Urine Bilirubin Negative (Negative) Urine Urobilinogen 4 mg/dL (Negative) H Urine Leukocyte Esterase Negative /uL (Negative) Urine RBC 1 /hpf (0 - 3) Urine WBC <1 /hpf (0 - 3) Urine Squamous Epithelial Cells Few /hpf (<5) Urine Bacteria None seen /hpf (None Seen) Urine Glucose Normal mg/dL (Normal) Microbiology Microbiology Date/Time Source Procedure Growth Status 05/15/24 18:02 Nose MRSA Screen - Final Complete Assessment/Plan Assessment/Plan # Lumbar Radiculopathy with Disc Herniation - s/p Surgery L5-S1 Discectomy 05/17/24 # HTN - HOLD Meds - BP on lower side # Vitamin D Def- Supplement # Transaminitis - Due to alcohol use? 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
[2024-05-18] MEDS: MULTIPLE VITAMINS W/ MINERALS TAB PO ONE (18:50)
[2024-05-18] MEDS: MAGNESIUM OXIDE 400 MG TAB PO ONE (18:50)
[2024-05-18] MEDS: THIAMINE HCL 100 MG TAB PO ONE (18:50)
[2024-05-18] MEDS: FOLIC ACID 1 MG TAB PO ONE (18:50)
[2024-05-19] VITALS (10 sets, daily range): BP systolic 106–139; BP diastolic 61–85; PULSE 18–99; RESP 16–18; TEMP 97.1–98.7; O2SAT 95–96
[2024-05-19 05:49] LABS: Basophils # (auto) 0 10 ^3/uL (0-0.2); Basophils % (auto) 0.4 % (0.0-2.0); Eosinophils # (auto) 0.1 10 ^3/uL (0-0.8); Eosinophils % (auto) 0.8 % (0.0-7.0); Hematocrit 41.2 % (41.0-53.0); Hemoglobin 14.2 g/dL (13.5-17.5); Lymphocytes # (auto) 2.2 10 ^3/uL (0.4-5.4); Lymphocytes % (auto) 18.1 % (10.0-50.0); Mean Corpuscular Hemoglobin 32.7 pg (28.0-32.0); Mean Corpuscular Hgb Conc. 34.4 g/dL (32.0-36.0); Monocytes # (auto) 0.9 10 ^3/uL (0-1.3); Monocytes % (auto) 7.4 % (0.0-12.0); Neutrophils # (auto) 9.1 10 ^3/uL (1.6-8.6); Neutrophils % (auto) 73.3 % (37.0-80.0); Platelet Count (auto) 230 10^3/uL (140-450); Red Blood Cells 4.34 10^6/uL (4.5-5.90); Red Cell Distribution Width 13.3 % (11.8-14.3); White Blood Cell 12.4 10^3/uL (4.4-10.8)
[2024-05-19 06:06] LABS: Anion Gap 8 (5-15); Carbon Dioxide 24 mmol/L (20-31); Chloride 104 mmol/L (98-107); Potassium 3.7 mmol/L (3.5-5.1); Sodium 136 mmol/L (136-145)
[2024-05-19 06:07] LABS: Calcium 8.8 mg/dL (8.7-10.4)
[2024-05-19 06:12] LABS: Glucose 104 mg/dL (74-106); Magnesium 2.2 mg/dL (1.6-2.6)
[2024-05-19 06:18] LABS: BUN/Creatinine Ratio 8.2 (10.0-20.0); Blood Urea Nitrogen < 5 mg/dL (9-23)
[2024-05-19] MEDS ORDERED: MORPHINE SULFATE INJ 2 MG/ml SYRG IV PRN (11:30)
[2024-05-19] MEDS: OXYCODONE W/ ACETAMINOPHEN 5/325MG TABLET PO PRN (12:00)
[2024-05-19] MEDS: CARISOPRODOL 350 MG TAB PO SCH (13:48)
--- NOTE | 2024-05-19 15:50 | DVHPN2 ---
Subjective Seen and examined at bedside, s/p Surgery. Drained removed. PT eval. Changes from previous H/P or p: No Changes Eyes: No Pain, No Vision change, No Conjunctivae inflammation, No Eyelid inflammation, No Other, No Redness ENT: No Ear pain, No Ear discharge, No Nose pain, No Nose discharge, No Nose congestion, No Mouth pain, No Mouth swelling, No Throat pain, No Throat swelling, No Other Cardiovascular: No Chest Pain, No Palpitations, No Orthopnea, No Paroxysmal Noc. Dyspnea, No Edema, No Lt Headedness, No Other Respiratory: No Cough, No Dry, No Shortness of breath, No SOB with excertion, No Wheezing, No Hemoptysis, No Pleuritic Pain, No Sputum, No Other Gastrointestinal: No Nausea, No Vomiting, No Abdominal Pain, No Diarrhea, No Constipation, No Melena, No Hematochezia, No Other Genitourinary: No Dysuria, No Frequency, No Incontinence, No Hematuria, No Retention, No Other Skin: No Rash, No Lesions, No Jaundice, No Bruising, No Other Objective Vitals Vital Signs Date Time Temp Pulse Resp B/P (MAP) Pulse Ox O2 Delivery O2 Flow Rate FiO2 05/19/24 13:44 97.1 83 16 110/62 (78) 96 97.1 05/19/24 08:00 Room Air* 0 21 Intake/Output Intake and Output 05/19/24 07:00 Intake Total 3110 ml Output Total 3600 ml Balance -490 ml Intake Oral 1910 ml IV Total 1200 ml Output Urine Total 3450 ml Drainage Total 50 ml Other 100 ml # Bowel Movements 1 Exam General Appearance: Alert, Oriented X3, Cooperative, No distress HEENT: Atraumatic Respiratory: Clear to auscultation, Normal air movement Cardiovascular: Regular rate, Normal S1, Normal S2 Abdominal: Normal bowel sounds, Soft Extremities: No clubbing Neuro: Other (Left Leg motor 4/5, sensory 4/5). Drain in place Psych/Mental Status: Mental status NL Medications Current Medications Medications Dose Ordered Sig/Neetu Route Start Time Stop Time Status Last Admin Dose Admin Sodium Chloride 10 ml Q8HR IV 05/15/24 14:00 05/19/24 14:00 10 ML Lorazepam 0.5 mg Q6HP PRN PO 05/15/24 12:00 Enoxaparin Sodium 40 mg DAILY SC 05/16/24 10:00 05/19/24 08:35 40 MG Ergocalciferol 50,000 unit Q7D PO 05/16/24 14:30 05/16/24 15:09 50,000 UNIT Folic Acid 1 mg DAILY PO 05/17/24 10:00 05/19/24 08:32 1 MG Thiamine HCl 100 mg DAILY PO 05/17/24 10:00 05/19/24 08:33 100 MG Multivitamins/ Minerals 1 tab DAILY PO 05/17/24 10:00 05/19/24 08:32 1 TAB Magnesium Oxide 400 mg DAILY PO 05/17/24 10:00 05/19/24 08:32 400 MG Lisinopril 40 mg DAILY PO 05/17/24 10:00 05/19/24 08:31 40 MG Ondansetron HCl 4 mg Q4HP PRN IV 05/17/24 17:15 Acetaminophen 650 mg Q6HP PRN PO 05/17/24 17:15 Docusate Sodium 100 mg BID PO 05/17/24 22:00 05/19/24 08:32 100 MG Nitroglycerin 0.4 mg Q5MINP PRN SL 05/17/24 17:15 Morphine Sulfate 2 mg Q30M PRN IV 05/17/24 17:15 Morphine Sulfate 2 mg Q4HP PRN IV 05/19/24 11:30 Carisoprodol 350 mg TID PO 05/19/24 14:00 05/19/24 13:48 350 MG Oxycodone/ Acetaminophen 2 tab Q4HP PRN PO 05/19/24 11:30 05/19/24 12:00 2 TAB Laboratory Results Laboratory Tests 05/19/24 05:10 Chemistry Test 05/19/24 05:10 Calcium Level 8.8 mg/dL (8.7-10.4) Magnesium Level 2.2 mg/dL (1.6-2.6) Urinalysis Test 05/15/24 13:43 Urine Color Yellow (Yellow) Urine Clarity Clear (Clear) Urine pH 7.5 (5.0-9.0) Urine Specific [place] 1.019 (1.001-1.035) Urine Protein Trace (Negative) H Urine Ketones Negative (Negative) Urine Blood Negative /uL (Negative) Urine Nitrite Negative (Negative) Urine Bilirubin Negative (Negative) Urine Urobilinogen 4 mg/dL (Negative) H Urine Leukocyte Esterase Negative /uL (Negative) Urine RBC 1 /hpf (0 - 3) Urine WBC <1 /hpf (0 - 3) Urine Squamous Epithelial Cells Few /hpf (<5) Urine Bacteria None seen /hpf (None Seen) Urine Glucose Normal mg/dL (Normal) Microbiology Microbiology Date/Time Source Procedure Growth Status 05/15/24 18:02 Nose MRSA Screen - Final Complete Assessment/Plan Assessment/Plan # Lumbar Radiculopathy with Disc Herniation - s/p Surgery L5-S1 Discectomy 05/17/24 # HTN - HOLD Meds - BP on lower side # Vitamin D Def- Supplement # Transaminitis - Due to alcohol use? 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
[2024-05-20] VITALS (7 sets, daily range): BP systolic 104–126; BP diastolic 54–89; PULSE 60–104; RESP 16–18; TEMP 98–99; O2SAT 95–97
[2024-05-20 06:01] LABS: Basophils # (auto) 0.1 10 ^3/uL (0-0.2); Basophils % (auto) 0.7 % (0.0-2.0); Eosinophils # (auto) 0.1 10 ^3/uL (0-0.8); Eosinophils % (auto) 1.2 % (0.0-7.0); Hematocrit 44.5 % (41.0-53.0); Hemoglobin 15.2 g/dL (13.5-17.5); Lymphocytes # (auto) 1.6 10 ^3/uL (0.4-5.4); Lymphocytes % (auto) 15.6 % (10.0-50.0); Mean Corpuscular Hemoglobin 32.9 pg (28.0-32.0); Mean Corpuscular Hgb Conc. 34.2 g/dL (32.0-36.0); Mean Corpuscular Volume 96.2 fL (80.0-100.0); Monocytes # (auto) 0.8 10 ^3/uL (0-1.3); Monocytes % (auto) 7.8 % (0.0-12.0); Neutrophils # (auto) 7.7 10 ^3/uL (1.6-8.6); Neutrophils % (auto) 74.7 % (37.0-80.0); Platelet Count (auto) 223 10^3/uL (140-450); Red Blood Cells 4.63 10^6/uL (4.5-5.90); Red Cell Distribution Width 13.4 % (11.8-14.3); White Blood Cell 10.3 10^3/uL (4.4-10.8)
[2024-05-20 06:27] LABS: Alanine Aminotransferase 221 U/L (7-40); Albumin 3.9 g/dL (3.2-4.8); Alkaline Phosphatase 127 U/L (46-116); Anion Gap 6 (5-15); Aspartate Aminotransferase 176 U/L (13-40); BUN/Creatinine Ratio 8.8 (10.0-20.0); Blood Urea Nitrogen 6 mg/dL (9-23); Calcium 9.4 mg/dL (8.7-10.4); Carbon Dioxide 30 mmol/L (20-31); Chloride 100 mmol/L (98-107); Glucose 111 mg/dL (74-106); Potassium 4.3 mmol/L (3.5-5.1); Sodium 136 mmol/L (136-145)
[2024-05-20 06:28] LABS: Bilirubin, Total 1.8 mg/dL (0.2-1.0); Total Protein 6.5 g/dL (5.7-8.2)
--- NOTE | 2024-05-20 17:37 | DVHPN2 ---
Subjective Seen and examined at bedside, s/p Surgery. LFTs elevated, monitor LFTs. Changes from previous H/P or p: No Changes Eyes: No Pain, No Vision change, No Conjunctivae inflammation, No Eyelid inflammation, No Other, No Redness ENT: No Ear pain, No Ear discharge, No Nose pain, No Nose discharge, No Nose congestion, No Mouth pain, No Mouth swelling, No Throat pain, No Throat swelling, No Other Cardiovascular: No Chest Pain, No Palpitations, No Orthopnea, No Paroxysmal Noc. Dyspnea, No Edema, No Lt Headedness, No Other Respiratory: No Cough, No Dry, No Shortness of breath, No SOB with excertion, No Wheezing, No Hemoptysis, No Pleuritic Pain, No Sputum, No Other Gastrointestinal: No Nausea, No Vomiting, No Abdominal Pain, No Diarrhea, No Constipation, No Melena, No Hematochezia, No Other Genitourinary: No Dysuria, No Frequency, No Incontinence, No Hematuria, No Retention, No Other Skin: No Rash, No Lesions, No Jaundice, No Bruising, No Other Objective Vitals Vital Signs Date Time Temp Pulse Resp B/P (MAP) Pulse Ox O2 Delivery O2 Flow Rate FiO2 05/20/24 17:00 99.0 104 16 122/86 (98) 97 99.0 05/20/24 08:00 Room Air* 0 21 Intake/Output Intake and Output 05/20/24 07:00 Intake Total 2460 ml Output Total 1910 ml Balance 550 ml Intake Oral 2460 ml Output Urine Total 1200 ml Urine/Stool Mix 650 ml Drainage Total 20 ml Other 40 ml # Voids 6 # Bowel Movements 2 Exam General Appearance: Alert, Oriented X3, Cooperative, No distress HEENT: Atraumatic Respiratory: Clear to auscultation, Normal air movement Cardiovascular: Regular rate, Normal S1, Normal S2 Abdominal: Normal bowel sounds, Soft Extremities: No clubbing Neuro: Other (Left Leg motor 4/5, sensory 4/5). Drain in place Psych/Mental Status: Mental status NL Medications Current Medications Medications Dose Ordered Sig/Neetu Route Start Time Stop Time Status Last Admin Dose Admin Sodium Chloride 10 ml Q8HR IV 05/15/24 14:00 05/20/24 14:00 10 ML Lorazepam 0.5 mg Q6HP PRN PO 05/15/24 12:00 Enoxaparin Sodium 40 mg DAILY SC 05/16/24 10:00 05/20/24 09:34 40 MG Ergocalciferol 50,000 unit Q7D PO 05/16/24 14:30 05/16/24 15:09 50,000 UNIT Folic Acid 1 mg DAILY PO 05/17/24 10:00 05/20/24 09:35 1 MG Thiamine HCl 100 mg DAILY PO 05/17/24 10:00 05/20/24 09:34 100 MG Multivitamins/ Minerals 1 tab DAILY PO 05/17/24 10:00 05/20/24 09:41 1 TAB Magnesium Oxide 400 mg DAILY PO 05/17/24 10:00 05/20/24 09:34 400 MG Lisinopril 40 mg DAILY PO 05/17/24 10:00 05/19/24 08:31 40 MG Ondansetron HCl 4 mg Q4HP PRN IV 05/17/24 17:15 Acetaminophen 650 mg Q6HP PRN PO 05/17/24 17:15 Docusate Sodium 100 mg BID PO 05/17/24 22:00 05/20/24 09:34 100 MG Nitroglycerin 0.4 mg Q5MINP PRN SL 05/17/24 17:15 Morphine Sulfate 2 mg Q30M PRN IV 05/17/24 17:15 Morphine Sulfate 2 mg Q4HP PRN IV 05/19/24 11:30 Carisoprodol 350 mg TID PO 05/19/24 14:00 05/20/24 14:51 350 MG Oxycodone/ Acetaminophen 2 tab Q4HP PRN PO 05/19/24 11:30 05/20/24 11:59 2 TAB Laboratory Results Laboratory Tests 05/20/24 05:34 Chemistry Test 05/20/24 05:34 Albumin 3.9 g/dL (3.2-4.8) Calcium Level 9.4 mg/dL (8.7-10.4) Total Protein 6.5 g/dL (5.7-8.2) LFT Test 05/20/24 05:34 Alanine Aminotransferase (ALT) 221 U/L (7-40) H Alkaline Phosphatase 127 U/L (46-116) H Aspartate Amino Transferase (AST) 176 U/L (13-40) H Total Bilirubin 1.8 mg/dL (0.2-1.0) H Urinalysis Test 05/15/24 13:43 Urine Color Yellow (Yellow) Urine Clarity Clear (Clear) Urine pH 7.5 (5.0-9.0) Urine Specific [place] 1.019 (1.001-1.035) Urine Protein Trace (Negative) H Urine Ketones Negative (Negative) Urine Blood Negative /uL (Negative) Urine Nitrite Negative (Negative) Urine Bilirubin Negative (Negative) Urine Urobilinogen 4 mg/dL (Negative) H Urine Leukocyte Esterase Negative /uL (Negative) Urine RBC 1 /hpf (0 - 3) Urine WBC <1 /hpf (0 - 3) Urine Squamous Epithelial Cells Few /hpf (<5) Urine Bacteria None seen /hpf (None Seen) Urine Glucose Normal mg/dL (Normal) Microbiology Microbiology Date/Time Source Procedure Growth Status 05/15/24 18:02 Nose MRSA Screen - Final Complete Assessment/Plan Assessment/Plan # Traminitis - Monitor LFTs # Lumbar Radiculopathy with Disc Herniation - s/p Surgery L5-S1 Discectomy 05/17/24 # HTN - HOLD Meds - BP on lower side # Vitamin D Def- Supplement # Alcohol Abuse - 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
[2024-05-21 05:49] VITALS: BP 122/70; PULSE 85; RESP 18; TEMP 98.2; O2SAT 94
[2024-05-21 07:46] LABS: Alanine Aminotransferase 213 U/L (7-40); Albumin 3.6 g/dL (3.2-4.8); Alkaline Phosphatase 128 U/L (46-116); Anion Gap 5 (5-15); Aspartate Aminotransferase 140 U/L (13-40); Calcium 9.3 mg/dL (8.7-10.4); Carbon Dioxide 28 mmol/L (20-31); Chloride 100 mmol/L (98-107); Glucose 103 mg/dL (74-106); Potassium 3.9 mmol/L (3.5-5.1); Sodium 133 mmol/L (136-145)
[2024-05-21 07:47] LABS: Bilirubin, Total 1.7 mg/dL (0.2-1.0)
[2024-05-21 08:00] LABS: BUN/Creatinine Ratio 8.3 (10.0-20.0); Blood Urea Nitrogen < 5 mg/dL (9-23)
[2024-05-21 09:00] VITALS: BP 133/84; PULSE 72; RESP 18; TEMP 98.2; O2SAT 96
[2024-05-21] MEDS ORDERED: TRAM-626 PO (10:38)
[2024-05-21] MEDS ORDERED: FOLI-119 PO (10:38)
[2024-05-21] MEDS ORDERED: ERGO1CAP23 PO (10:38)
[2024-05-21] MEDS ORDERED: THIA100T10 PO (10:38)
[2024-05-21] MEDS ORDERED: MULT-351 PO (10:38)
--- NOTE | 2024-05-21 10:45 | DVHDS2 ---
Discharge Summary Date of Admission May 17, 2024 at 17:08 Date of Discharge: May 21, 2024 Admitting Diagnosis Lumbar Radiculopathy with Disc Herniation Labs/Diagnostic Data: Laboratory Results Test 05/21/24 06:35 05/20/24 05:34 05/19/24 05:10 05/16/24 06:04 Sodium Level 133 mmol/L (136-145) Potassium Level 3.9 mmol/L (3.5-5.1) Chloride Level 100 mmol/L (98-107) Carbon Dioxide Level 28 mmol/L (20-31) Anion Gap 5 (5-15) Blood Urea Nitrogen < 5 mg/dL (9-23) Creatinine 0.60 mg/dL (0.700-1.30) Glomerular Filtration Rate Calc 123 mL/min (>90) BUN/Creatinine Ratio 8.3 (10.0-20.0) Serum Glucose 103 mg/dL (74-106) Calcium Level 9.3 mg/dL (8.7-10.4) Total Bilirubin 1.7 mg/dL (0.2-1.0) Aspartate Amino Transferase (AST) 140 U/L (13-40) Alanine Aminotransferase (ALT) 213 U/L (7-40) Alkaline Phosphatase 128 U/L (46-116) Total Protein 6.0 g/dL (5.7-8.2) Albumin 3.6 g/dL (3.2-4.8) White Blood Count 10.3 10^3/uL (4.4-10.8) Red Blood Count 4.63 10^6/uL (4.5-5.90) Hemoglobin 15.2 g/dL (13.5-17.5) Hematocrit 44.5 % (41.0-53.0) Mean Corpuscular Volume 96.2 fL (80.0-100.0) Mean Corpuscular Hemoglobin 32.9 pg (28.0-32.0) Mean Corpuscular Hemoglobin Concent 34.2 g/dL (32.0-36.0) Red Cell Distribution Width 13.4 % (11.8-14.3) Platelet Count 223 10^3/uL (140-450) Mean Platelet Volume 8.6 fL (6.9-10.8) Neutrophils (%) (Auto) 74.7 % (37.0-80.0) Lymphocytes (%) (Auto) 15.6 % (10.0-50.0) Monocytes (%) (Auto) 7.8 % (0.0-12.0) Eosinophils (%) (Auto) 1.2 % (0.0-7.0) Basophils (%) (Auto) 0.7 % (0.0-2.0) Neutrophils # (Auto) 7.7 10 ^3/uL (1.6-8.6) Lymphocytes # (Auto) 1.6 10 ^3/uL (0.4-5.4) Monocytes # (Auto) 0.8 10 ^3/uL (0-1.3) Eosinophils # (Auto) 0.1 10 ^3/uL (0-0.8) Basophils # (Auto) 0.1 10 ^3/uL (0-0.2) Nucleated Red Blood Cells 0.0 % Magnesium Level 2.2 mg/dL (1.6-2.6) Hemoglobin A1c 5.6 % A1C (<5.7) Thyroid Stimulating Hormone (TSH) 2.03 uIU/mL (0.55-4.78) Test 05/15/24 13:43 05/15/24 10:27 Urine Color Yellow (Yellow) Urine Clarity Clear (Clear) Urine pH 7.5 (5.0-9.0) Urine Specific [place] 1.019 (1.001-1.035) Urine Protein Trace (Negative) Urine Ketones Negative (Negative) Urine Blood Negative /uL (Negative) Urine Nitrite Negative (Negative) Urine Bilirubin Negative (Negative) Urine Urobilinogen 4 mg/dL (Negative) Urine Leukocyte Esterase Negative /uL (Negative) Urine RBC 1 /hpf (0 - 3) Urine WBC <1 /hpf (0 - 3) Urine Squamous Epithelial Cells Few /hpf (<5) Urine Bacteria None seen /hpf (None Seen) Urine Glucose Normal mg/dL (Normal) Urine Opiates Screen Pos (NEGATIVE) Urine Fentanyl Screen Neg (NEGATIVE) Urine Barbiturates Screen Neg (NEGATIVE) Urine Phencyclidine Screen Neg (NEGATIVE) Urine Amphetamines Screen Neg (NEGATIVE) Urine Benzodiazepines Screen Neg (NEGATIVE) Urine Cocaine Screen Neg (NEGATIVE) Urine Cannabinoids Screen Pos (NEGATIVE) Prothrombin Time 10.7 sec (9.3-11.8) Prothrombin Time INR 1.01 (0.9-1.15) Activated Partial Thromboplast Time 25.2 SEC (24.5-34.5) Vitamin D 25-Hydroxy 7.1 ng/mL (30.0-100) Plasma/Serum Blood Alcohol < 3.0 mg/dL (<10) Other Laboratory Tests 05/21/24 06:35 05/20/24 05:34 Brief Hx & Hospital Course: Patient is a 43 year-old M with a PMHx of Alcohol abuse and HTN who presented to the ED today with complaints of worsening back pain radiating to the left leg who is causing him unable to walk and has been worsening the past 1 week. Patient had a MRI few days ago at [facility] which showed L1 Lumbar Herniation with significant swelling causing his symptoms. I reviewed his imaging with Dr. Mcdowell who reported patient needs to have surgery for his symptoms. Patient denied urinary or bowel incontinence. Patient underwent surgery, tolerated well. Patient has a significant history of alcohol abuse, last alcoholic drink was 1 week ago. Patient has Transaminitis, due to alcohol abuse, counseled extensively on cessation. Patient reports his grandfather this morning and wishes to be discharged home. Patient will come and see me in the office on Thursday and will need LFTs checked. PATIENT HAS A HISTORY OF ALCOHOL ABUSE THEREFORE, PATIENT WILL NOT BE GIVEN OXYCODONE OR PERCOCET. TRAMADOL FOR PAIN, PATIENT NOT USE ALCOHOL AND PAIN MEDICATIONS TOGETHER. Operations or Procedures Operative Report - 2 Report Details Date: 05/17/24 Preop Diagnosis: lumbar spondylolisthesis and massive L5/S1 herniated disc causing spinal stenosis /incapacitating radiculopathy and progressive neurologic deficit Postop Diagnosis: same Surgeon: Rigo Mcdowell MD Police Pilot: Lucrecia Sousa NP Anesthesiologist: Kathleen Glez MD Anesthesia: General Consent: The patient was informed of the risks and benefits of the procedure. These include but are not limited to complications of anesthesia, postoperative infection, incomplete relief of symptoms, recurrence of symptoms, damage to blood vessels, nerves and tendons, deep venous thrombosis, pulmonary embolism and possible need for repeat surgery in the future. Name of Procedure Performed see detailed note Procedure Details Procedure Details: Pre-op Diagnosis: Lumbar Degenerative Disk Disease and Lumbar Spinal Stenosis due to massive L5/S1 disc herniation causing Incapacitating back pain, radiculopathy and progressive neurologic deficit Post-op Diagnosis: Lumbar Degenerative Disk Disease and Lumbar Spinal Stenosis due to massive L5/S1 disc herniation causing Incapacitating back pain, radiculopathy and progressive neurologic deficit Procedure: Lumbar 5 laminectomy with Lumbar 5 foraminotomies and facetectomies along with a L5/S1 discectomy to decompress central canal and Lumbar 5 nerve roots Bilateral Sacral 1 Laminotomies/Foraminotomies/Facetectomies to decompress the central canal and Bilateral Sacral 1 nerve Roots Lumbar 5 to sacral 1 posterior spinal interbody fusion with PEEK cage Lumbar 5 to sacral 1 posterior spinal instrumentation with Pedicle screws - xtant spine Local Bone Autograft For Fusion Allograft Bone Substitute (Bacterin) to augment Fusion Use of Demineralized Bone Matrix to Augment Fusion Microscope For Microdissection Surgeon: Rigo Mcdowell MD Assist: Lucrecia Sousa Anesthesia: General Fluids and EBL: See anesthesia note Patient was seen in the Pre Anesthesia Care Unit (PACU) and the operative site was initialed by me. All questions were answered to the patients satisfaction and chart reviewed. The patient was taken to the operative room where pre- operative antibiotics were given 30 minutes prior to incision. General anesthesia was induced and neuro-monitoring leads placed. Mclaughlin catheter was placed. The patient was turned prone onto the [facility] spinal table. While positioning, I made sure that the belly was free to allow proper expansion of the lungs. The hips were extended and all bony prominences padded. The shoulders were abducted 80 degree and the elbows flexed 100 degrees with no tension on the brachial plexus. I check the foot arterial pulses and they were palpable. The patient was prepped and draped and time out was taken at this time per usual protocol. At this time, the C-arm fluoroscope was brought in and was used to stacey the incision borders proximally and distally. Using a Number 10 Blade, an incision was made extending it proximally and distally per C arm stacey from the posterior spinous process of lumbar 5 to sacral 1 , down to the lumbo- dorsal fascia. All bleeding was controlled with electrocautery. Self-retaining retractors were placed. Electrocautery was then used to take down the lumbo- dorsal fascia, to free the muscle off the bone bilaterally. A Fortunato retractor was placed over the posterior spinous process proximally and a lateral C-arm fluoroscope image was taken to insure we were at the correct level. Next, using bovie electro cautery, The deep fascia laterally to the facet joints was removed to expose the transverse processes of lumbar 5, sacral 1 while taking care to avoid injuring the facet capsule at the proximal end of the incision. Next, the microscope was bought in for visualization and using a Luxell rongeur, the posterior spinous process of lumbar 5 and sacral 1 were removed and the bone was saved for use as local autograft. I used alternating Kerison 2 mm and 3 mm rongeurs to perform central laminectomies of lumbar pained and bilateral laminotomies/foraminotomies/facetectomies of sacral 1 to decompress the central canal. Next using alternating Kerison 2mm and 3 mm rongeurs, the superior articular facets of lumbar 5 and sacral 1 were removed bilaterally to decompress the lateral recess (facetectomies) and then extended proximally to decompress the foramen bilaterally (foraminotomies). Next, focus was given to the massive right sided L5/S1 herniated disc and 90 percent of the herniation was removed in one piece. The rest removed when preparing the dis space. I used a ball tipped nerve probed to insure that the respective nerve roots were able to be mobilized 5mm in each direction were unimpeded in the lateral recess and foramen. Next I carefully inspected the dura to make sure no durotomy was visible and it was not. Next I retracted the right sacral 1 nerve medially and used increasing size mara until a 11/28mm PEEEK cage was placed at the L5/S1 level. Next, I covered the exposed dura with gelfoam soaked in thrombin and the microscope was wheeled away from the operative filed. The C-arm fluoroscope was brought in and perfect AP views of the Lumbar 5 and sacral 1 pedicles were obtained. I placed bilateral pedicle screws at these levels by: using a Lenke awl to make a pilot supervisor hole, then a ball tip robe to make sure there was no pedicle breach, then a tap to prepare the track and a 6 mm diameter and at lumbar 5 45mm and at sacral 1 35mmm length pedicle screw placed bilaterally. This step to place bilateral pedicle screws was repeated up to the lumbar 5/sacral level. Next, the c-arm fluoroscope took an AP and lateral x-ray to ensure proper placement of the pedicle screws. Next, the neuro-stimulation probe was placed over the tip of each screw and each screw stimulated only after a current greater than 10 mA was delivered to the screw. Next , I took a [place] Drill to decorticate the transverse process which were exposed and local bone graft, Bacterin allograft bone substitute and Demineralized bone matrix were placed along the inter transverse process intervals bilaterally (the fusion bed). Next a curved amparo sized to fit the pedicle screw interval was placed and secured to each pedicle screw using set screws, The set screws were tightened using a torque screwdriver (set to 10 N*M torque) to secure the amparo to the pedicle screws bilaterally. Final AP and lateral C arm fluoroscopic films were taken at this time. Next a 10 Tamazight diameter Hemovac drain was laced deep to the lumbo- dorsal fascia. The lumbo-dorsal fascia was closed with interrupted 0-Vicry sutures. The subcutaneous tissue was closed with interrupted 2-0 Vicryl sutures. The skin was closed with 2-0 nylon subcuticular suture. TLSO Brace and bone stimulator to be placed post op. Sterile dressings were placed. The pt. was turned supine onto the stretcher, extubated and taken to the recovery room in stable condition. 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 ACHARYA ON THURSDAY Medications: SEE [facility] Discharge Statement: "Patient was advised to return to the ER or call 911 if any headaches, dizziness, shortness of breath, chest pain, abdominal pain, bleeding, fevers, or worsening of medical condition. Patient was counseled about treatment plan, medications, possible side effects, patientverbalized understanding. All questions were answered to the best of my ability. This discharge took greater then 30 minutes in planning, reviewing documentation, counseling the patient, and discussing with other team members." ASSESSMENT ASSESSMENT Assessment same Date of Service: May 21, 2024 Billing Provider: KASSANDRA ACHARYA MD Common Visit Codes: [id number] DISCH DAY >30min KASSANDRA ACHARYA MD May 21, 2024 10:45
== END 2024-05-21 12:15 | disposition home health service (06) | DRG 402 ==
LOC: ER 09:28 → OVERFLOW 11:57 → UNDOADMIN 11:57 → OVERFLOW 12:06 → EAST 17:41 → TELE 05-17 17:08 → TELE-EAST 05-17 20:00 → EAST 05-18 19:09
PROVIDERS: ADMIT Orthopaedic Surgery; ATTEND Internal Medicine
PROC: 0SG30AJ Fusion of Lumbosacral Joint with Interbody Fusion Device, Posterior Approach, Anterior Column, Open Approach (ICD-10-PCS; 2024-05-17)
PROC: 0SG3071 Fusion of Lumbosacral Joint with Autologous Tissue Substitute, Posterior Approach, Posterior Column, Open Approach (ICD-10-PCS; 2024-05-17)
PROC: 01NB0ZZ Release Lumbar Nerve, Open Approach (ICD-10-PCS; 2024-05-17)
PROC: 01NR0ZZ Release Sacral Nerve, Open Approach (ICD-10-PCS; 2024-05-17)
PROC: 00NY0ZZ Release Lumbar Spinal Cord, Open Approach (ICD-10-PCS; 2024-05-17)
PROC: 4A11X4G Monitoring of Peripheral Nervous Electrical Activity, Intraoperative, External Approach (ICD-10-PCS; 2024-05-17)
PROC: 0SB40ZZ Excision of Lumbosacral Disc, Open Approach (ICD-10-PCS; principal; 2024-05-17 14:47)
DX: M48.07 Spinal stenosis, lumbosacral region (principal); M51.16 Intervertebral disc disorders with radiculopathy, lumbar region; E55.9 Vitamin D deficiency, unspecified; E66.9 Obesity, unspecified; I10 Essential (primary) hypertension; E11.9 Type 2 diabetes mellitus without complications; R74.01 Elevation of levels of liver transaminase levels; Z88.1 Allergy status to other antibiotic agents; Z88.0 Allergy status to penicillin; Z83.3 Family history of diabetes mellitus; Z68.34 Body mass index [BMI] 34.0-34.9, adult
CPT/HCPCS: 36415; 71045; 72100; 76000; 80048; 80053; 80307; 80320; 81001; 82306; 83036; 83735; 84443; 85025; 85610; 85730; 86850; 86900; 86901; 87081; 96374; 96375; 97110; 97116; 97163; 97530; G0378; J0330; J1956; J2250; J2405; J2704

== ENCOUNTER → 2024-05-24 | Outpatient (CLI) | payer BC, MEDICAID ==
[~2024-05-24] MED LIST changes: +ERGO1CAP23 PO; +FOLI-119 PO; +MULT-351 PO; +THIA100T10 PO; +TRAM-626 PO; -ZOFR4T PO
[2024-05-24 13:08] LABS: Alanine Aminotransferase 150 U/L (7-40); Alkaline Phosphatase 136 U/L (46-116); Anion Gap 4 (5-15); Aspartate Aminotransferase 107 U/L (13-40); BUN/Creatinine Ratio 8.6 (10.0-20.0); Bilirubin, Total 0.5 mg/dL (0.2-1.0); Blood Urea Nitrogen 6 mg/dL (9-23); Calcium 9.6 mg/dL (8.7-10.4); Carbon Dioxide 29 mmol/L (20-31); Chloride 102 mmol/L (98-107); Glucose 83 mg/dL (74-106); Potassium 4.8 mmol/L (3.5-5.1); Sodium 135 mmol/L (136-145); Total Protein 6.6 g/dL (5.7-8.2)
== END | disposition home or self-care (01) ==
LOC: LAB 12:30
PROVIDERS: ATTEND Internal Medicine
DX: I10 Essential (primary) hypertension (principal)
CPT/HCPCS: 36415; 80053

== ENCOUNTER 2025-02-11 06:56 | Emergency (ER) | payer BC, MEDICAID ==
[~2025-02-11] VITALS: Ht 165.1 cm; Wt 90.8 kg
--- NOTE | 2025-02-11 07:08 | ECG ---
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
[2025-02-11] MEDS: MAALOX PLUS or MAALOX 30 ML PO ONE (07:27)
[2025-02-11 07:34] LABS: Hematocrit 52.1 % (41.0-53.0); Hemoglobin 18.3 g/dL (13.5-17.5); Mean Corpuscular Hemoglobin 32.3 pg (28.0-32.0); Mean Corpuscular Volume 91.7 fL (80.0-100.0); Nucleated Red Blood Cells % 0.2 %
--- NOTE | 2025-02-11 07:39 | ED.PDOC ---
GI ASSESSMENT HPI Comments This is a 44 year old male presenting to the ED with chief complaint of abdominal pain. Patient reports that he has been experiencing epigastric abdominal pain with associated nausea and vomiting for the past 5 days, unable to keep any food or fluids down. Patient relays that he had woken up this morning with substernal chest pain, worrying him enough to come to the ED. Patient states he has history of heavy alcohol consumption, admitting to jag morales heavily these past few days with an empty stomach. Patient notes similar symptoms have occurred in the past due to his excessive drinking. Patient denies any diarrhea, fever, chills, SOB, headache, dizziness, or melena. Chief Complaint: Chest Pain Time Seen by MD: 07:37 Primary Care Provider: NONE Reviewed Notes: Nurses Notes, Medications, Allergies Allergies: Coded Allergies: Penicillins (Verified Allergy, Severe, 04/15/21) Ampicillin (Verified Allergy, Unknown, 07/04/22) Grandin (Verified Allergy, Unknown, 04/08/23) Erythromycin (Verified Allergy, Unknown, 02/06/23) Home Meds Active Scripts Tramadol HCl (Tramadol HCl) 50 Mg Tab, 50 MG PO Q12HP PRN for 7 Days, #14 TAB Prov:KASSANDRA ACHARYA MD 05/21/24 Folic Acid (Folic Acid) 1 Mg Tab, 1 MG PO DAILY for 30 Days, #30 TAB Prov:KASSANDRA ACHARYA MD 05/21/24 Thiamine Hcl (VITAMIN B-1) 100 Mg Tb, 100 MG PO DAILY for 30 Days, #30 TAB Prov:KASSANDRA ACHARYA MD 05/21/24 Multiple Vitamins W/ Minerals (Multiple Vitamins/Womens) Womens Tab, 1 TAB PO DAILY for 30 Days, #30 TAB Prov:KASSANDRA ACHARYA MD 05/21/24 Ergocalciferol (VITAMIN D 62359 UNIT) 50,[address] [place], [address] UNIT PO Q7D for 12 Days, #12 CAP Prov:KASSANDRA ACHARYA MD 05/21/24 Pantoprazole Sodium Sesquihydr (Protonix) 40 Mg Tab, 40 MG PO BID for 30 Days, #60 TAB 2 Refills Prov:NINFA QURESHI MD 04/10/23 Sucralfate (CARAFATE) 1 Gm Tab, 1 GM OR QIDACHS for 30 Days, #120 TAB 2 Refills Prov:NINFA QURESHI MD 04/10/23 Reported Medications Lisinopril (Lisinopril) 40 Mg Tab, 40 MG PO DAILY for 30 Days, MG 04/09/23 Information Source: Patient, Spouse Mode of Arrival: Ambulatory Timing: Days Duration: Since onset Prehospital treatment: None Quality: Sharp Vomitus: Watery Stool: Normal Severity: Moderate Recent: Ingestion of ETOH Recent Hx of: None Pain Location: Epigastric Modifying Factors: Food Associated sign and symptoms: Nausea, Vomiting, Abdominal Pain Past Medical History PAST MEDICAL HISTORY: HTN Surgical History: Appendectomy Family History Family History: Reviewed,noncontributory to illness, Family hx of DM Social History Smoker: Non-Smoker Alcohol: Heavy Drugs: Marijuana Lives In: Home Constitutional: denies: chills, diaphoresis, fatigue, fever, malaise, sweats, weakness, others EENTM: denies: blurred vision, double vision, ear bleeding, ear discharge, ear drainage, ear pain, ear ringing, eye pain, eye redness, hearing loss, mouth pain, mouth swelling, nasal discharge, nose bleeding, nose congestion, nose pain, photophobia, tearing, throat pain, throat swelling, voice changes, others Respiratory: denies: cough, hemoptysis, orthopnea, SOB at rest, shortness of breath, SOB with excertion, stridor, wheezing, others Cardiovascular: reports: chest pain; denies: dizzy spells, diaphoresis, Dyspnea on exertion, edema, irregular heart beat, left arm pain, lightheadedness, palpitations, PND, syncope, others Gastrointestinal: reports: abdominal pain (w), nausea, vomiting; denies: abdomen distended, blood streaked bowels, constipated, diarrhea, dysphagia, difficulty swallowing, hematemesis, melena, poor appetite, poor fluid intake, rectal bleeding, rectal pain, others Genitourinary: denies: burning, dysuria, flank pain, frequency, hematuria, incontinence, penile discharge, penile sore, pain, testicle pain, testicle swelling, urgency, others Neurological: denies: dizziness, fainting, headache, left sided numbness, left sided weakness, numbness, paresthesia, pre-existing deficit, right sided numbn ess, right sided weakness, seizure, speech problems, tingling, tremors, weakness, others Musculoskeletal: denies: back pain, gout, joint pain, joint swelling, muscle pain, muscle stiffness, neck pain, others Integumetry: denies: bruises, change in color, change in hair/nails, dryness, laceration, lesions, lumps, rash, wounds, others Allergic/Immunocompromised: denies: Difficulty Healing, Frequent Infections, Hives, Itching, others Hematologic/Lymphatic: denies: anemia, blood clots, easy bleeding, easy bruising, swollen glands, others Endocrine: denies: excessive hunger, excessive sweating, excessive thirst, excessive urination, flushing, intolerance to cold, intolerance to heat, unexplained weight gain, unexplained weight loss, others Psychiatric: denies: anxiety, bipolar disorder, depression, hopeless, panic disorder, schizophrenia, sleepless, suicidal, others All Other Systems: Reviewed and Negative Physical Exam General Appearance: No Apparent Distress, Normal HEENT: Normal ENT Inspection, Pharynx Normal, TMs Normal Neck: Full Range of Motion, Non-Tender, Normal, Normal Inspection Respiratory: Chest Non-Tender, Lungs Clear, No Accessory Muscle Use, No Respiratory Distress, Normal Breath Sounds Cardiovascular: No Edema, No JVD, No Murmur, No Gallop, Normal Peripheral Pulses, Regular Rate/Rhythm Breast Exam: Deferred Gastrointestinal: No Organomegaly, No Pulsatile Mass, Normal Bowel Sounds, Soft, Tenderness (Epigastric tenderness) Genitalia: Deferred Pelvic: Deferred Rectal: Deferred Extremities: No calf tenderness, Normal capillary refill, Normal inspection, Normal range of motion, Non-tender, No pedal edema Musculoskeletal : Apperance: Normal Neurologic: Alert, airline lounge receptionist II-XII nml as Tested, No Motor Deficits, Normal Affect, Normal Mood, No Sensory Deficits Cerebellar Function: Normal Reflexes: Normal Skin: Dry, Normal Color, Warm Lymphatic: No Adenopathy Was a procedure done? Was a procedure done?: No GI differential Dx Differential Diagnosis: Angina/PA, Bowel Obstruction, Cholangitis, Cholecystitis, Dysmenorrhea, Gastroenteritis, GI hemorrhage, Inflammatory BD, PID, Porphyria, UTI, Dehydration, Electrolyte Imbalance, , Ischemic Bowel, Anemia, Stress Ulcer, Kidney Stone X-Ray, Labs, Meds, VS Vital Signs Date Time Temp Pulse Resp B/P (MAP) Pulse Ox O2 Delivery O2 Flow Rate FiO2 02/11/25 10:28 98.6 88 16 162/113 (129) 96 98.6 02/11/25 07:44 102 18 96 Room Air* 0 21 02/11/25 07:34 98.3 102 16 153/117 (129) 95 98.3 02/11/25 07:03 106 02/11/25 06:57 98.1 109 18 165/129 97 98.1 Lab Test 02/11/25 08:20 02/11/25 07:26 02/11/25 07:19 Range/Units Troponin I High Sensitivity < 3 L 3 L </=54 ng/L Urine Color Light-orange Yellow Urine Clarity Clear Clear Urine pH 7.5 5.0-9.0 Urine Specific [place] 1.008 1.001-1.035 Urine Protein Negative Negative Urine Ketones Negative Negative Urine Blood 1+ H Negative /uL Urine Nitrite Negative Negative Urine Bilirubin Negative Negative Urine Urobilinogen Normal Negative mg/dL Urine Leukocyte Esterase Negative Negative /uL Urine RBC 3 0 - 3 /hpf Urine Microscopic WBC 1 0-3 /HPF Urine Squamous Epithelial Cells None seen <5 /hpf Urine Bacteria Few H None Seen /hpf Urine Glucose Normal Normal mg/dL Urine Opiates Screen Neg NEGATIVE Urine Fentanyl Screen Neg NEGATIVE Urine Barbiturates Screen Neg NEGATIVE Urine Phencyclidine Screen Neg NEGATIVE Urine Amphetamines Screen Neg NEGATIVE Urine Benzodiazepines Screen Neg NEGATIVE Urine Cocaine Screen Neg NEGATIVE Urine Cannabinoids Screen Pos NEGATIVE White Blood Count 11.0 H 4.4-10.8 10^3/uL Red Blood Count 5.68 4.5-5.90 10^6/uL Hemoglobin 18.3 H 13.5-17.5 g/dL Hematocrit 52.1 41.0-53.0 % Mean Corpuscular Volume 91.7 80.0-100.0 fL Mean Corpuscular Hemoglobin 32.3 H 28.0-32.0 pg Mean Corpuscular Hemoglobin Concent 35.2 32.0-36.0 g/dL Red Cell Distribution Width 13.1 11.8-14.3 % Platelet Count 302 140-450 10^3/uL Mean Platelet Volume 8.2 6.9-10.8 fL Neutrophils (%) (Auto) 73.5 37.0-80.0 % Lymphocytes (%) (Auto) 17.7 10.0-50.0 % Monocytes (%) (Auto) 6.8 0.0-12.0 % Eosinophils (%) (Auto) 0.9 0.0-7.0 % Basophils (%) (Auto) 1.1 0.0-2.0 % Neutrophils # (Auto) 8.1 1.6-8.6 10 ^3/uL Lymphocytes # (Auto) 2.0 0.4-5.4 10 ^3/uL Monocytes # (Auto) 0.7 0-1.3 10 ^3/uL Eosinophils # (Auto) 0.1 0-0.8 10 ^3/uL Basophils # (Auto) 0.1 0-0.2 10 ^3/uL Nucleated Red Blood Cells 0.2 % D-Dimer, Quantitative 0.74 H 0.0-0.49 mg/L FEU Sodium Level 133 L 136-145 mmol/L Potassium Level 4.3 3.5-5.1 mmol/L Chloride Level 98 98-107 mmol/L Carbon Dioxide Level 26 20-31 mmol/L Anion Gap 9 5-15 Blood Urea Nitrogen < 5 L 9-23 mg/dL Creatinine 0.88 0.700-1.30 mg/dL Glomerular Filtration Rate Calc 109 >90 mL/min BUN/Creatinine Ratio 5.7 L 10.0-20.0 Serum Glucose 118 H 74-106 mg/dL Calcium Level 9.6 8.7-10.4 mg/dL Magnesium Level 2.2 1.6-2.6 mg/dL Total Bilirubin 2.6 H 0.2-1.0 mg/dL Aspartate Amino Transferase (AST) 49 H 13-40 U/L Alanine Aminotransferase (ALT) 64 H 7-40 U/L Alkaline Phosphatase 99 46-116 U/L B-Type Natriuretic Peptide 15.55 0-100 pg/mL Total Protein 7.8 5.7-8.2 g/dL Albumin 5.1 H 3.2-4.8 g/dL Plasma/Serum Blood Alcohol < 3.0 <10 mg/dL Current Medications Medications (Trade) Dose Ordered Sig/Neetu Route Start Time Stop Time Status Last Admin Al Hydrox/Mg Hydrox/Simethicone (Maalox Plus) 30 ml ONCE ONCE PO 02/11/25 07:15 02/11/25 07:16 DC 02/11/25 07:27 X-Ray, Labs, Meds, VS Comment This 44-year-old male presents secondary to epigastric abdominal pain and chest pain associated shortness of breath for last several days. The patient endorses drink copious amounts of alcohol and eating very little. His workup was significant for elevated D-dimer. This association with his chest pain/shortness breath has been concerned for a pulmonary embolism. Patient will be admitted for further workup management of his likely pulmonary embolism. Time of 1ST Reevaluation: 08:35 Reevaluation 1ST: Improved Patient Education/Counseling: Diagnosis, Treatment Family Education/Counseling: Diagnosis, Treatment SEPSIS Sepsis Screen Date sepsis recognized/suspect: Feb 11, 2025 Time Sepsis recognized/suspect: 656 Recent Procedure: No On Antibiotic Therapy: No Respiratory Rate >20: No Heart Rate >90: No Temp<36 C (96.8 F) or >38.3 C: No SBP <90 or MAP <65 mmHG: No New Acute Mental Status Change: No Is the patient on CPAP, BIPAP,: No Vital Signs Date Time Temp Pulse Resp B/P (MAP) Pulse Ox O2 Delivery O2 Flow Rate FiO2 02/11/25 10:28 98.6 88 16 162/113 (129) 96 98.6 02/11/25 07:44 102 18 96 Room Air* 0 21 02/11/25 07:34 98.3 102 16 153/117 (129) 95 98.3 02/11/25 07:03 106 02/11/25 06:57 98.1 109 18 165/129 97 98.1 Laboratory Tests Test 02/11/25 07:19 White Blood Count 11.0 10^3/uL (4.4-10.8) H Medications Medications Dose Ordered Sig/Neetu Route Start Time Stop Time Status Last Admin Dose Admin Al Hydrox/Mg Hydrox/Simethicone 30 ml ONCE ONCE PO 02/11/25 07:15 02/11/25 07:16 DC 02/11/25 07:27 Departure 1 Departure Time of Disposition: 11:58 Impression: Primary Impression: Chest pain Additional Impressions: Dyspnea Pulmonary embolism Disposition: 09 ADMITTED INPATIENT Admit to: [facility] Condition: Serious Critical Care Note Critical Care Time?: No Stability Stability form required: No Heart Score Heart Score: Heart Score Response (Comments) Value History Moderate Suspicious 1 EKG Normal 0 Age <45 0 Risk Factors 1 or 2 risk factors 1 Troponin 1-2 x's Normal limit 1 Total 3 I personally scribed for DAVID BREWER MD ([email or web address]) on 02/11/25 at 07:39. Electron ically submitted by Nnamdi Renteria ([email or web address]). DAVID BREWER MD Feb 11, 2025 07:39
[2025-02-11 07:42] LABS: Urine Protein, UAD Negative (Negative)
[2025-02-11 07:44] VITALS: PULSE 102; RESP 18; O2SAT 96
[2025-02-11 07:45] LABS: Amphetamine Screen, Urine Neg (NEGATIVE); Barbiturate Scree,Urine Neg (NEGATIVE); Benzodiazephine Screen, Urine Neg (NEGATIVE); Cannabinoid Screen, Urine Pos (NEGATIVE); Cocaine Screen, Urine Neg (NEGATIVE); Opiate Scree,Urine Neg (NEGATIVE); Phencyclidine Screen, Urine Neg (NEGATIVE)
[2025-02-11 07:55] LABS: Alkaline Phosphatase 99 U/L (46-116); Anion Gap 9 (5-15); Calcium 9.6 mg/dL (8.7-10.4); Carbon Dioxide 26 mmol/L (20-31); Chloride 98 mmol/L (98-107); Magnesium 2.2 mg/dL (1.6-2.6); Potassium 4.3 mmol/L (3.5-5.1); Total Protein 7.8 g/dL (5.7-8.2)
[2025-02-11 07:57] LABS: Alanine Aminotransferase 64 U/L (7-40); Albumin 5.1 g/dL (3.2-4.8); BUN/Creatinine Ratio 5.7 (10.0-20.0); Bilirubin, Total 2.6 mg/dL (0.2-1.0); Blood Urea Nitrogen < 5 mg/dL (9-23); Glucose 118 mg/dL (74-106); Sodium 133 mmol/L (136-145)
[2025-02-11 10:28] VITALS: BP 162/113; PULSE 88; RESP 16; TEMP 98.6; O2SAT 96
== END 2025-02-11 12:31 | disposition left against medical advice (07) ==
LOC: ER 06:56
DX: R07.89 Other chest pain (principal); R06.00 Dyspnea, unspecified; I26.99 Other pulmonary embolism without acute cor pulmonale; I10 Essential (primary) hypertension; Z79.899 Other long term (current) drug therapy; Z90.49 Acquired absence of other specified parts of digestive tract; Z88.0 Allergy status to penicillin; Z88.1 Allergy status to other antibiotic agents; Z88.8 Allergy status to other drugs, medicaments and biological substances
CPT/HCPCS: 36415; 80053; 80307; 80320; 81001; 83735; 83880; 84484; 85025; 85379; 93005